=== PATIENT | male | born 1980 | race Caucasian/White ===

== ENCOUNTER 2025-06-24 17:19 | Inpatient (IN) | payer MEDICAID, SELFPAY ==
[2025-06-24] VITALS (9 sets, daily range): BP systolic 120–138; BP diastolic 82–91; PULSE 82–104; RESP 12–30; TEMP 36.8; O2SAT 70–94; BMI 33.7
--- NOTE | 2025-06-24 17:35 | EKG_ITS ---
[facility] Test Date: 2025-06-24 Pat Name: JUANA UMANA Department: Room: - Gender: Male Progressive Care Unit Registered Nurse: : 1980 Requested By: Vibha Nunez Order Number: [id number] Reading MD: Vibha Nunez Measurements Intervals [place] Rate: 92 P: 83 AL: 192 QRS: 133 QRSD: 137 T: -3 QT: 371 QTc: 460 Interpretive Statements SINUS RHYTHM WITH OCCASIONAL VENTRICULAR PREMATURE COMPLEXES RIGHT BUNDLE BRANCH BLOCK [120+ ms QRS DURATION, UPRIGHT V1, 40+ ms S IN I/aVL/V4/V5/V6] LEFT POSTERIOR FASCICULAR BLOCK [QRS AXIS > 109, INFERIOR Q] Compared to ECG 04/07/2019 20:57:41 Ventricular premature complex(es) now present Right bundle-branch block now present Left posterior fascicular block now present Myocardial infarct finding no longer present T-wave abnormality no longer present Possible ischemia no longer present /store/S0/[id number].pdf
--- NOTE | 2025-06-24 17:37 | XR_ITS ---
Examination: AP chest single view Technique: AP portable upright chest single view Date and time: June 24, 2025, 1802 hrs., Comparison May 13, 2023 Indications: Chest pain shortness of breath today. Findings: Mild to moderate CHF Moderate enlargement cardiac contour Prominent vascular congestion with perihilar basilar edema Mild osteopenia Impression: Mild to moderate CHF Moderate enlargement cardiac contour, consider pericardial effusion
[2025-06-24] MEDS: ALBUTEROL RT 2.5 MG/0.5 ML NEBU 10 MG INH (17:41)
--- NOTE | 2025-06-24 17:41 | XR_ITS ---
Examination: Venous duplex lower extremity sonogram, bilateral. Date and time of exam: June 242038 hrs. Indications: Shortness of breath today chest pain Technique: Multiple sonographic images of the deep venous system have been obtained. B-mode/2-D grayscale imaging of vascular structures and Doppler spectral analysis (waveforms) and color performed Both legs are examined. Findings: Deep venous systems do not demonstrate abnormal echogenicity. All visualized deep veins exhibit compressibility. All visualized deep veins exhibit augmentation. Impression: Negative for deep vein thrombosis
--- NOTE | 2025-06-24 17:41 | XR_ITS ---
Examination: CTA chest with intravenous contrast 2-D reconstructions 3-D reconstructions, vascular Date and time of exam: June 24, 2025, 1917 hrs. Indications: Chest pain shortness of breath beginning one week ago CTDI: vol (mGy) 28.89 DLP: (mGycm) 634 Technique: Multiple axial sections of the thorax have been obtained. 3 mm slice thickness, from below the hemidiaphragms to above the apices of the lungs. Mediastinal and lung density settings have been obtained. 2-D sagittal and coronal reconstructions. 3-D angiographic renderings, 3-D volume renderings, 3D post processing, vascular maximum intensity projections obtained. Contrast administered is 100 cc Isovue-370. Low dose protocols were performed. One or more of the following dose reduction techniques were used; automated exposure control, adjustment of the mA and/or KV according to patient size, use of iterative reconstruction technique. Findings: No thoracic aortic aneurysmal dilatation or dissection Pulmonary artery segments are not enlarged No pulmonary artery emboli Mild vascular congestion Bibasilar significant pneumonia No visualized liver or splenic lesion No gallstones No pancreatic mass No hydronephrosis Impression: Negative for pulmonary artery emboli Significant bibasilar pneumonia
[2025-06-24] MEDS: MethylPREDNISolone SOD SUCC 62.5 MG/ML 2ML VIAL 125 MG IVP (17:43)
--- NOTE | 2025-06-24 17:44 | EDNOTE_ITS ---
ED SOB =RME/HPI General Chief Complaint: Shortness of Breath/Dyspnea Stated Complaint: SOB Time Seen by Provider: 06/24/25 17:36 Arrival date/time: 06/24/25 17:19 Mode of arrival: EMS RME / HPI RME / HPI Narrative: Patient is a 44-year-old male medical history of cardioversion in the past x 1 unclear etiology, smoking that is in the emergency department concerns for acute onset shortness of breath. 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 Denies recent travel or sick contacts. Has a hx of htn. Patient received breathing treatment en route. Requiring supplemental O2. Related Data Home Medications ?Medication ?Instructions ?Recorded ?Confirmed lisinopril 10 mg tablet 10 mg PO QDAY 06/24/2506/25 Previous Rx's ?Medication ?Instructions ?Recorded tamsulosin 0.4 mg capsule 0.4 mg PO QDAY 1 month #30 c aps 06/26/25 Allergies Allergy/AdvReac Type Severity Reaction Status Date / Time No Known Allergies Allergy Verified 02/02/19 06:46 Course Quality Measures none Orders Category Date Time Status Admit to Inpatient Status Routine Admission 06/24/25 22:07 Active Patient Condition Routine Admission 06/24/25 22:07 Ordered Activity as Tolerated Routine Care 06/24/25 22:[address] Screening NOW Care 06/24/25 17:41 Completed Assortment Planner Q4H START 00 Care 06/24/25 17:36 Completed EKG (ED ONLY) *Do not use* NOW Care 06/24/25 17:35 Completed EKG (ED ONLY) *Do not use* NOW Care 06/24/25 22:18 Completed Fluid restriction QDAY Care 06/24/25 22:12 Completed Intake and Output QSHIFT Care 06/24/25 22:15 Ordered Notify provider NEEDED Care 06/24/25 22:07 Completed Seizure precautions NEEDED Care 06/24/25 22:08 Completed Strict Intake and Output Q1H Care 06/24/25 22:15 Ordered Strict Intake and Output Q1H Care 06/24/25 23:15 Ordered Strict Intake and Output Q1H Care 06/25/25 00:15 Ordered Strict Intake and Output Q1H Care 06/25/25 01:15 Ordered Strict Intake and Output Q1H Care 06/25/25 02:15 Ordered Strict Intake and Output Q1H Care 06/25/25 03:15 Ordered Strict Intake and Output Q1H Care 06/25/25 04:15 Ordered Strict Intake and Output Q1H Care 06/25/25 05:15 Ordered Strict Intake and Output Q1H Care 06/25/25 06:15 Ordered Strict Intake and Output Q1H Care 06/25/25 07:15 Ordered Strict Intake and Output Q1H Care 06/25/25 08:15 Ordered Strict Intake and Output Q1H Care 06/25/25 09:15 Ordered Strict Intake and Output Q1H Care 06/25/25 10:15 Ordered Strict Intake and Output Q1H Care 06/25/25 11:15 Ordered Strict Intake and Output Q1H Care 06/25/25 12:15 Ordered Strict Intake and Output Q1H Care 06/25/25 13:15 Ordered Strict Intake and Output Q1H Care 06/25/25 14:15 Ordered Strict Intake and Output Q1H Care 06/25/25 15:15 Ordered Strict Intake and Output Q1H Care 06/25/25 16:15 Ordered Strict Intake and Output Q1H Care 06/25/25 17:15 Ordered Strict Intake and Output Q1H Care 06/25/25 18:15 Ordered Strict Intake and Output Q1H Care 06/25/25 19:15 Ordered Strict Intake and Output Q1H Care 06/25/25 20:15 Ordered Strict Intake and Output Q1H Care 06/25/25 21:15 Ordered Diet Regular Diet 06/24/[address] angio chest Stat Exams 06/24/25 17:41 Completed CXR [XR chest 1V] Stat Exams 06/24/25 17:37 Completed EKG (ED Only) Stat Exams 06/24/25 17:35 Draft EKG (ED Only) Stat Exams 06/24/25 22:16 Draft US venous duplex LE BI Stat Exams 06/24/25 17:41 Completed A1C [Glycohemoglobin w (eAG)] Routine Lab 06/24/25 22:04 Completed ABG [Arterial Blood Gas] Stat Lab 06/24/25 17:45 Completed BNP [B-Type Natriuretic Peptide] Stat Lab 06/24/25 17:56 Completed Blood Culture (Lab) Stat Lab 06/24/25 22:04 Completed CBC AM DRAW Lab 06/25/25 03:20 Completed CBC AM DRAW Lab 06/26/25 04:54 Completed CBC Stat Lab 06/24/25 17:56 Completed CMP [Comprehensive Metabolic Panel] Stat Lab 06/24/25 17:56 Completed Drug Screen,Urine Stat Lab 06/24/25 18:45 Completed Electrolytes, Urine Random Stat Lab 06/24/25 22:23 Completed Magnesium AM DRAW Lab 06/26/25 04:54 Completed Magnesium Routine Lab 06/24/25 22:04 Completed Phosphorous Routine Lab 06/25/25 21:03 Completed Renal Function Panel Routine Lab 06/24/25 22:04 Completed Thyroid Stimulating Hormone Routine Lab 06/25/25 21:03 Completed Troponin I Stat Lab 06/24/25 17:56 Completed UA, C/S IF [Urinalysis, C/S if Indicated] Stat Lab 06/24/25 18:45 Completed ALBUTEROL RT 0.5ml [Proventil Rt 0.5ml] Med 06/24/25 17:32 Discontinued 10 mg .ROUTE .STK-MED ONE ALBUTEROL RT 0.5ml [Proventil Rt 0.5ml] Med 06/24/25 17:29 Discontinued 10 mg INH X1 ONE Acetaminophen Tab [Tylenol Tab] Med 06/24/25 22:06 Discontinued 650 mg PO Q6H PRN Doxycycline Inj [Vibramycin Inj] 100 mg Med 06/24/25 20:32 Discontinued Sodium Chloride 0.9% (Pop) [NS 0.9% mini bag] 100 ml IV X1 Enoxaparin [Lovenox] Med 06/25/25 09:00 Discontinued 40 mg SC QDAY MethylPREDNISolone.* [SoluMEDROL Inj] Med 06/24/25 17:36 Discontinued 125 mg IVP X1 ONE Ondansetron Inj [Zofran Inj] Med 06/24/25 22:06 Discontinued 4 mg IVP Q6H PRN Sodium Chloride Rt Lauren 0.9% [NS Rt Lauren 0.9%] Med 06/24/25 17:29 Discontinued 3 ml INH PRN PRN cefTRIAXone/D5w 1gm IV premix [Rocephin/D5w 1gm IV Med 06/24/25 20:32 Discontinued premix] 1 gm in 50 ml IV X1 mg Hyd/Al Hyd/Johnson Susp [Maalox Susp] Med 06/24/25 22:06 Discontinued 30 ml PO Q6H PRN Code Status Routine Oth 06/24/25 22:06 Completed BiPAP / CPAP NEEDED RT 09/26/25 17:29 Completed Oxygen Delivery PRN RT 06/24/25 22:06 Completed Vital Signs Vital signs: Vital Signs Temperature 98.2 F 06/24/25 17:24 Pulse Rate 96 06/24/25 17:24 Respiratory Rate 24 H 06/24/25 17:24 Pulse Oximetry (%) 91 L 06/24/25 17:24 Oxygen Delivery Method BiPAP 06/24/25 17:24 Fraction of Inspired Oxygen 50 06/24/25 17:24 Shortness of Breath / Dyspnea MDM Narrative MDM Narrative:: Patient is a 44-year-old male medical history of cardioversion in the past x 1 unclear etiology that is in the emergency department concerns for acute onset shortness of breath. Vital signs and exam as listed. Concern for reactive airway disease, ACS arrhythmia pulmonary embolus pneumonia CHF among others. Ordered labs EKG chest x-ray as well as CT angio of the chest. Ordered continuous breathing treatment, steroids BiPAP. Patient received a breathing treatment and magnesium by EMS and was put on BiPAP, was feeling better by the time he arrived to the emergency department however continues sat in the low 80s on room air. Labs with evidence of leukocytosis 21, left shift of 83%. Hemoglobin normal. ABG with evidence of pO2 50, pH normal, pCO2 normal. ABG was performed when patient arrived. Patient with hyponatremia sodium 121, potassium 3.4, chloride 90, bicarb 18.8, normal gap, normal creatinine, GFR normal troponin 0.083. BNP 157. Chest x-ray with cardiomegaly and findings concerning for possible mild to moderate CHF versus pericardial effusion. 5:44p discussed case with on-call mixed livestock farm worker Dr. Nguyen, discussed EKG findings and patient presentation. Concerned that patient is having a pulmonary embolus. Recommends CT angio of the chest. This time a shift is not transition care over to Dr. Martini. Patient is pending results of his w/u and safe dispo Patient data External records reviewed:: [facility] previous records and EMS form Clinical information provided by:: patient and EMS Social determinants that could affect healthcare access:: none Patient has the following chronic illnesses:: See MDM How is presenting disease/condition affected by chronic disease/condition?: exacerbated by Evaluation data The following diagnostics were reviewed and interpreted by me:: lab results, radiology exam(s) and EKG tracing(s) Lab and/or radiology exams considered but not ordered:: None Interpretation Summary: hypoxic resp failure Medications / Prescriptions Medications or Prescriptions considered but not ordered:: None Medication administrations:: Medication Administration History Discontinued Medications Acetaminophen (Acetaminophen 325 Mg Tablet) 650 mg PO Q6H PRN PRN Reason: Fever >101.5 Stop: 07/24/25 22:05 Al Hydrox/Mg Hydrox/Simethicone (Mg Hyd/Al Hyd/Johnson (Maalox Reg) Susp 30 Ml Udc) 30 ml PO Q6H PRN PRN Reason: Indigestion Stop: 07/24/25 22:05 Albuterol (Albuterol Rt 2.5 Mg/0.5 Ml Nebu) 10 mg INH X1 ONE Stop: 06/24/25 17:30 Last Admin: 06/24/25 17:41 Dose: 10 mg Documented By: NAPOLEON Albuterol (Albuterol Rt 2.5 Mg/0.5 Ml Nebu) Confirm Administered Dose 10 mg .ROUTE .STK-MED ONE Stop: 06/24/25 17:33 Last Admin: 06/24/25 18:30 Dose: Not Given Documented By: GIOVANI Non-Admin Reason: Duplicate Medication on eMAR Desmopressin Acetate (Desmopressin Acetate 4 Mcg/Ml Vial) 4 mcg IV X1 ONE Stop: 06/24/25 23:31 Last Admin: 06/24/25 23:49 Dose: 4 mcg Documented By: ERIK Desmopressin Acetate (Desmopressin Acet Inj 4 Mcg/Ml Vial 10ml) 4 mcg IV X1 ONE Stop: 06/26/25 05:12 Desmopressin Acetate (Desmopressin Acet Inj 4 Mcg/Ml Vial 10ml) 4 mcg IV X1 ONE Stop: 06/26/25 07:13 Last Admin: 06/26/25 10:10 Dose: 4 mcg Documented By: MERCEDES Diazepam (Diazepam Inj 5 Mg/Ml Vial 2 Ml) 2.5 mg IVP Q2HR PRN PRN Reason: CIWA SCORE 8-13 Stop: 06/30/25 11:00 Enoxaparin Sodium (Enoxaparin Sod Inj 40 Mg/0.4 Ml Syringe) 40 mg SC QDAY CHASE Stop: 07/09/25 08:59 Last Admin: 06/26/25 08:16 Dose: 40 mg Documented By: Admin: 06/25/25 10:36 Dose: 40 mg Documented By: MERCEDES Ceftriaxone Sodium/Dextrose (Rocephin/D5w 1gm Iv Premix) 1 gm in 50 mls @ 100 mls/hr IV X1 ONE Stop: 06/24/25 21:01 Last Infusion: 06/24/25 21:32 Dose: Infused Documented By: Admin: 06/24/25 21:01 Dose: 100 mls/hr Documented By: AISHA Doxycycline Hyclate 100 mg/ (Sodium Chloride) 100 mls @ 100 mls/hr IV X1 ONE Stop: 06/24/25 21:31 Last Infusion: 06/24/25 22:35 Dose: Infused Documented By: Admin: 06/24/25 21:33 Dose: 100 mls/hr Documented By: AISHA Ceftriaxone Sodium/Dextrose (Rocephin/D5w 1gm Iv Premix) 1 gm in 50 mls @ 100 mls/hr IV QDAY [facility] Stop: 06/29/25 09:29 Last Admin: 06/26/25 08:17 Dose: 100 mls/hr Documented By: Infusion: 06/25/25 11:14 Dose: Infused Documented By: Admin: 06/25/25 10:44 Dose: 100 mls/hr Documented By: MERCEDES Azithromycin 250 mg/ Sterile (Water 2.5 ml/ Sodium Chloride) 252.5 mls @ 252.5 mls/hr IV QDAY CHASE Stop: 06/27/25 09:59 Last Admin: 06/26/25 10:10 Dose: 252.5 mls/hr Documented By: Infusion: 06/25/25 14:04 Dose: Infused Documented By: Admin: 06/25/25 13:04 Dose: 252.5 mls/hr Documented By: MERCEDES Dextrose (D5w) 500 mls @ 125 mls/hr IV .Q4H CHASE Stop: 07/25/25 00:44 Last Infusion: 06/25/25 05:53 Dose: Infused Documented By: Admin: 06/25/25 01:53 Dose: 125 mls/hr Documented By: ERIK Dextrose (D5w) 500 mls @ 200 mls/hr IV .Q2H30M CHASE Stop: 07/25/25 01:57 Last Infusion: 06/25/25 10:45 Dose: Infused Documented By: Admin: 06/25/25 07:41 Dose: 200 mls/hr Documented By: Infusion: 06/25/25 07:40 Dose: Infused Documented By: Admin: 06/25/25 04:31 Dose: 200 mls/hr Documented By: Infusion: 06/25/25 04:30 Dose: Infused Documented By: Admin: 06/25/25 02:50 Dose: 200 mls/hr Documented By: ERIK Dextrose (D5w) 1,000 mls @ 50 mls/hr IV .Q20H CHASE Stop: 06/26/25 14:44 Dextrose (D5w) 1,000 mls @ 100 mls/hr IV .Q10H CHASE Stop: 06/26/25 05:31 Last Admin: 06/25/25 21:19 Dose: 100 mls/hr Documented By: GIULIA Dextrose (D5w) 1,000 mls @ 200 mls/hr IV .Q5H CHASE Stop: 06/26/25 08:15 Last Admin: 06/26/25 02:41 Dose: 200 mls/hr Documented By: Infusion: 06/26/25 02:41 Dose: Infused Documented By: Admin: 06/25/25 22:48 Dose: 200 mls/hr Documented By: HV Dextrose (D5w) 1,000 mls @ 250 mls/hr IV .Q4H CHASE Stop: 06/26/25 11:00 Last Admin: 06/26/25 03:54 Dose: 250 mls/hr Documented By: GIULIA Dextrose (D5w) 1,000 mls @ 100 mls/hr IV .Q10H CHASE Stop: 06/27/25 01:11 Last Admin: 06/26/25 08:15 Dose: 100 mls/hr Documented By: MRECEDES Lorazepam (Lorazepam 0.5 Mg Tablet) 0.5 mg PO Q4HR PRN PRN Reason: CIWA Score 2-6 Stop: 06/30/25 11:00 Methylprednisolone Sodium Succinate (Methylprednisolone Sod Succ 62.5 Mg/Ml 2ml Vial) 125 mg IVP X1 ONE Stop: 06/24/25 17:37 Last Admin: 06/24/25 17:43 Dose: 125 mg Documented By: GIOVANI Ondansetron HCl (Ondansetron Inj 2 Mg/Ml Inj 2 Ml) 4 mg IVP Q6H PRN; Protocol PRN Reason: NAUSEA OR VOMITING Stop: 07/24/25 22:05 Potassium Chloride (Potassium Chloride 20 Meq Tabcr) 20 meq PO X1 ONE Stop: 06/25/25 08:08 Last Admin: 06/25/25 10:36 Dose: 20 meq Documented By: MERCEDES Sodium Chloride (Sodium Chloride Rt Lauren 0.9% 3 Ml Nebu) 3 ml INH PRN PRN PRN Reason: SOLN Stop: 07/24/25 17:28 Sodium Chloride (Sodium Chloride Rt 10% 15 Ml Nebu) 5 ml INH X1 ONE Stop: 06/24/25 23:00 Last Admin: 06/24/25 23:20 Dose: Not Given Documented By: NAYA Non-Admin Reason: Other, see note Tamsulosin HCl (Tamsulosin Hcl 0.4 Mg Capsule) 0.4 mg PO QDAY CHASE Stop: 07/25/25 11:59 Last Admin: 06/26/25 08:16 Dose: 0.4 mg Documented By: Admin: 06/25/25 14:12 Dose: 0.4 mg Documented By: MERCEDES See above Consultations Consultation(s) initiated? (list below): Yes Diagnosis Shortness of Breath Differential Diagnosis: other (See MDM) Most likely diagnosis given after review of the tests above:: Acute hypoxic respiratory failure Admission Indicated Admission indicated?: indicated Explain why admission is indicated or not indicated:: Dispo pending Admission Request Was there a request for admission?: No Disposition Plan Disposition Plan: other (specify) (Signed out) Discharge Plan Plan Patient Disposition: Admit Acute Care w/in Hospital Problem List Clinical Impression: Acute hypoxic respiratory failure, Pneumonia
[2025-06-24 18:02] LABS: Base Excess -3 (-3-3); HCO3 21 mEq/L (20-26); Inspired Oxygen, FIO2 50 %; O2 Saturation 86 % (91-98); PCO2 36 mmHg (32.0-48.0); pH, Arterial 7.39 (7.35-7.45)
[2025-06-24 18:05] LABS: Allen Test Performed/OK; PO2 50 mmHg (83-108); Puncture Site Left Radial
[2025-06-24 18:07] LABS: Basophils # (Auto) 0.1 Thou/mm3 (0.0-0.2); Basophils % (Auto) 0 % (0-2.5); Eosinophils # (Auto) 0.1 Thou/mm3 (0.0-0.5); Eosinophils % (Auto) 0 % (0-10); Hematocrit 42.5 % (41.0-53.0); Hemoglobin 14.4 g/dL (13.5-16.0); Immature Granulocytes Auto 0.40 Thou/mm3 (0.00-0.00); Lymphocytes # (Auto) 1.8 Thou/mm3 (1.0-4.8); Lymphocytes % (Auto) 9 % (10-50); Mean Corpuscular HGB Conc 33.9 g/dl (31.0-37.0); Mean Corpuscular Hemoglobin 28.6 pg (25.0-35.0); Mean Corpuscular Volume 85 fL (80-100); Monocytes # (Auto) 1.2 Thou/mm3 (0.0-0.8); Monocytes % (Auto) 6 % (0-12); Neutrophils # (Auto) 17.5 Thou/mm3 (1.8-7.7); Neutrophils % (Auto) 83 % (37-80); Nucleated Red Blood Cell # 0.00 Thou/mm3 (0.00-0.00); Nucleated Red Blood Cell % 0 /100 WBC (0); Platelet Count 233 Thou/mm3 (140-440); RDW Standard Deviation 39.9 fL (35.1-43.9); Red Blood Count 5.03 Miln/mm3 (4.50-5.90); White Blood Count 21.0 Thou/mm3 (3.8-10.6)
--- NOTE | 2025-06-24 18:23 | EDNOTE_ITS ---
Emergency Room Addendum Addendum Narrative: 1800: Care assumed from Dr. Patel, the previous shift emergency physician. Past medical, surgical, social and family history reviewed. Vitals and home medications reviewed. Results and treatment plan discussed. I will assume the care of the patient at this time and will follow the patient, pending work-up. Please refer to the emergency department record for history and examination from initial visit. 44yo male with a long-term smoking history presenting with sudden onset shortness of breath and was found to be in moderate-severe respiratory dist and was found to be profoundly hypoxic on room air, dropping to the 70s. Patient was treated aggressively with serial nebulizer therapy, IV steroids, and BiPAP with gradual steady improvement. Patient currently saturating at 92% 4L/NC. CTA scan failed to demonstrate PE but does show bibasilar pneumonia. Although patient is mild tachycardic, patient has been normaltensive throughout and doubt sepsis. May have had a severe bronchospastic episode. Dual IV antibiotics administered. Hospitalist consulted for admission. Dx: acute hypoxic respiratory failure, pneumonia RADIOLOGY RESULTS: [place] [facility] Signed Patient: JUANA UMANA [employer]. Record#: [id number] Birthdate: 1980 Age/Sex: 44 / M Location: [facility] Attending Dr: Ordering Physician: Vibha Patel MD Date of Service: 06/24/25 Procedure(s): XR chest 1V Accession Number(s): [id number] cc: Kole Amaro MD; Vianney Palomares VASCULAR RADIOLOGIST; Vibha Patel MD~ Examination: AP chest single view Technique: AP portable upright chest single view Date and time: June 24, 2025, 1802 hrs., Comparison May 13, 2023 Indications: Chest pain shortness of breath today. Findings: Mild to moderate CHF Moderate enlargement cardiac contour Prominent vascular congestion with perihilar basilar edema Mild osteopenia Impression: Mild to moderate CHF Moderate enlargement cardiac contour, consider pericardial effusion Dictated By: Kole Amaro MD Signed By: <Electronically signed by Kole Amaro MD in OV> 06/24/25 1843 [place] [facility] Signed Patient: JUANA UMANA [facility]. Record#: [id number] Birthdate: 1980 Age/Sex: 44 / M Location: [facility] Attending Dr: Ordering Physician: Vibha Patel MD Date of Service: 06/24/25 Procedure(s): CT angio chest Accession Number(s): [id number] cc: Kole Amaro MD; Vianney Palomares VASCULAR RADIOLOGIST; Vibha Patel MD~ Examination: CTA chest with intravenous contrast 2-D reconstructions 3-D reconstructions, vascular Date and time of exam: June 24, 2025, 191 hrs. Indications: Chest pain shortness of breath beginning one week ago CTDI: vol (mGy) 28.89 DLP: (mGycm) 634 Technique: Multiple axial sections of the thorax have been obtained. 3 mm slice thickness, from below the hemidiaphragms to above the apices of the lungs. Mediastinal and lung density settings have been obtained. 2-D sagittal and coronal reconstructions. 3-D angiographic renderings, 3-D volume renderings, 3D post processing, vascular maximum intensity projections obtained. Contrast administered is 100 cc Isovue-370. Low dose protocols were performed. One or more of the following dose reduction techniques were used; automated exposure control, adjustment of the mA and/or KV according to patient size, use of iterative reconstruction technique. Findings: No thoracic aortic aneurysmal dilatation or dissection Pulmonary artery segments are not enlarged No pulmonary artery emboli Mild vascular congestion Bibasilar significant pneumonia No visualized liver or splenic lesion No gallstones No pancreatic mass No hydronephrosis Impression: Negative for pulmonary artery emboli Significant bibasilar pneumonia Dictated By: Kole Amaro MD Signed By: <Electronically signed by Kole Amaro MD in OV> 06/24/252006
[2025-06-24 18:27] LABS: B-Type Natriuretic Peptide 157 pg/mL (0-100)
[2025-06-24 18:32] LABS: Alanine Aminotransferase 15 U/L (10-49); Albumin, Serum 4.1 gm/dL (3.5-5.0); Albumin/Globulin Ratio 1.9 (1.2-2.2); Alkaline Phosphatase 59 U/L (46-116); Anion Gap 12 (7-16); Aspartate Amino Transferase 22 U/L (0-34); BUN/Creatinine Ratio 8 Ratio (12-20); Bilirubin,Total 1.0 mg/dL (0.3-1.2); Blood Urea Nitrogen 11 mg/dL (9-23); Calcium 8.3 mg/dL (8.3-10.6); Calcium (Corrected) 8.3 mg/dL (8.5-10.1); Carbon Dioxide 18.8 mMol/L (20.0-31.0); Chloride 90 mMol/L (98-107); Creatinine (Component) 1.3 mg/dL (0.6-1.3); Estimated Creatinine Clearance 86.8 mL/min (>60); Globulin 2.2 gm/dL (2.3-3.5); Glucose 153 mg/dL (74-106); Osmolality,Calculated 246 (275-295); Potassium 3.4 mMol/L (3.4-5.1); Sodium 121 mMol/L (136-145); Total Protein 6.3 gm/dL (5.7-8.2); eGFR > 60 See Note
[2025-06-24 18:33] LABS: Troponin I 0.083 ng/mL (0.0-0.045)
--- NOTE | 2025-06-24 18:37 | PC.NURSE ---
Patient provided with urinal for urine sample. Called CT to take patient for exam.
--- NOTE | 2025-06-24 18:52 | PC.NURSE ---
Per Dr. Martini ok to keep 02 sats 88% or greater.
[2025-06-24 19:06] LABS: Collection Type, Urine Clean Catch
[2025-06-24 19:12] LABS: Bilirubin,Urine Negative (Negative); Blood,Urine Negative (Negative); Clarity,Urine Clear (Clear/Hazy); Color,Urine Lt-Yellow (Lt Yel-Yel); Culture Indicated,Urine Not Indicated; Glucose, Urine 2+ (Negative); Hyaline Casts,Urine < 1 /hpf (0-1); Ketones,Urine Negative (Negative); Leukocyte Esterase,Urine Negative (Negative); Nitrite,Urine Negative (Negative); PH,Urine 6.0 (5.0-7.0); Protein,Urine Trace (Neg - Trace); RBC,Urine 1 /hpf (0-3); Specific Gravity,Urine 1.018 (1.001-1.035); Squamous Epithelial Cell,Urine 1 /hpf (0-5); Urobilinogen,Urine Negative mg/dL (0.0-1.0); WBC,Urine < 1 /hpf (0-5)
[2025-06-24 19:19] LABS: Amphetamine/Methamp Scrn,U Negative (Negative); Barbiturate Screen,Urine Negative (Negative); Benzodiazepines Screen,Urine Negative (Negative); Benzoylecgonine Screen, Ur Negative (Negative); Fentanyl Screen,Urine Negative (Negative); Opiate Screen,Urine Negative (Negative); THC Screen,Urine Negative (Negative)
[2025-06-24] MEDS: cefTRIAXone/D5w 1gm IV premix 1 GM/50 ML BAG IV (21:01)
[2025-06-24] MEDS: DOXYCYCLINE INJ 100 MG in SODIUM CHLORIDE 0.9% (POP) 100 ML IV (21:33)
--- NOTE | 2025-06-24 22:16 | EKG_ITS ---
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
[2025-06-24 22:46] LABS: Chloride,Urine Random < 20.0 mMol/L (55.0-125.0); Potassium,Urine Random < 2 mMol/L (12-62); Sodium,Urine Random < 15.0 mMol/L (20.0-110.0)
--- NOTE | 2025-06-24 23:00 | ESHP_ITS ---
Documented by User: Allison Scherer MD 06/26/25 00:30 Documentation for date of: 06/24/25 HPI - Hospitalist History of Present Illness History of present illness: 44-year-old male with pmhx of COPD, HTN, cardioversion in 2019 for an episode of SVT, COPD, cardiac surgery in childhood for unknown condition and long smoking history BIBA to ED with complaint of acute onset shortness of breath. Patient was in his usual state of health but started experiencing increasing shortness of breath a few hours prior to admission, denies any other symptoms of chest pain, palpitations, cough, fever, chills, nausea/vomiting or neurosymptoms like headache/blurry vision/focal weakness. On presentation to ED vital signs were only noted for tachypnea, and O2 saturation of 80s%. Patient's labs showed leukocytosis of 21, sodium 121, chloride of 90, bicarb of 19, glucose 150, serum Osmo 246 troponin 0.083 and ABG O2 sat of 86%. Patient was started on BiPAP at ED and given magnesium and albuterol inhalation, along with methylprednisolone and IV antibiotics. EKG at ED showed [id number] concerning for PE, cardiology?Dr. Bermudez was contacted by ED, CTA of the chest was recommended,but did not show any signs of PE and was only noted for significant bibasilar pneumonia. At time of evaluation prior to admission the patient he was noted to be making significant amount of urine around 4 L since presentation to ED. Repeat BMP showed sodium of 129, desmopressin 4 mcg was administered for concern of rapid sodium correction the patient was started on D5 W. 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 Review of Systems Review of Systems Systems Reviewed: All systems reviewed, normal except as documented Past Medical History Past Medical History NEUROLOGIC: Positive Neurological Disorders (ANXIETY); Negative Seizures CARDIAC: Positive Cardiac Arrhythmia and Hypertension RESPIRATORY: Positive Asthma; Negative Chronic Obstructive Pulmonary Disease (COPD) GASTROINTESTINAL: Positive Gastrointestinal Disorders and Gastroesophageal Reflux Disease GENITOURINARY: Negative Genitourinary Disorders or Renal Disease MUSCULOSKELETAL: Negative Musculoskeletal Disorders ENT: Positive History of ENT Problems and Ear Infection (1 YEAR AGO BILATERAL) ENDOCRINE: Positive Endocrine Disorders; Negative Diabetes Mellitus Type 1 or Diabetes Mellitus Type 2 (BORDERLINE, NOT FORMERLY DIAGNOSED.) HEMATOLOGIC: Negative Blood Disorders or Sickle Cell Disease PSYCHO/SOCIAL: Positive Anxiety (SINCE 1 YEAR AGO.) OTHER HISTORY: Positive Hospitalization (FOR HERNIA REPAIR) and Chicken Pox; Negative Autoimmune Disease, Shingles, Falls, Blood Transfusions, Blood Transfusion Reaction (n/a), Anesthesia Reactions, Chemotherapy, Radiation Therapy or MRSA Family History FAMILY HISTORY: Positive Family Cardiac Disorders (DAD AND GRANDFATHER HAD HEART SURGERIES), Family Endocrine Disorders, Family Cancer and Family Surgery; Negative Family Psychiatric Problems, Family Respiratory Disorders, Family Gastrointestinal Problems or Family Anesthesia Reaction Surgical History SURGICAL: Positive Cardiac Surgery (3 CARDIAC SURGERIES UP TO THE AGE OF 1.) and Open Heart Surgery ( AN ); Negative Pacemaker Social History SMOKING STATUS: Current every day smoker SECOND HAND EXPOSURE: No SUBSTANCE USE: former substance user (Meth) LIVES WITH: Spouse Travel History EBOLA RISK: No Meds Home Medications and Allergies Home Medications ?Medication ?Instructions ?Recorded ?Confirmed ?Type lisinopril 10 mg tablet 10 mg PO QDAY 06/24/2506/25 History Allergies Allergy/AdvReac Type Severity Reaction Status Date / Time No Known Allergies Allergy Verified 02/02/19 06:46 Exam Vital Signs Temp Pulse Resp BP Pulse Ox O2 Del Method O2 Flow Rate 98.2 F 88 20 138/91 H 93 L Nasal Cannula 4 06/24/25 17:24 06/24/25 22:28 06/24/25 22:28 06/24/25 22:19 06/24/25 22:28 06/24/25 22:19 06/24/25 22:28 FiO2 50 06/24/25 17:43 Results - Hospitalist Labs Diagrams: 06/24/25 17:56 Labs: Short CBC 06/24/25 Range/Units 17:56 WBC 21.0 H (3.8-10.6) Thou/mm3 Hgb 14.4 (13.5-16.0) g/dL Hct 42.5 (41.0-53.0) % Plt Count 233 (140-440) Thou/mm3 BMP 06/24/25 17:56 Sodium 121 L Potassium 3.4 Chloride 90 L Carbon Dioxide 18.8 L BUN 11 Creatinine 1.3 Glucose 153 H Calcium 8.3 Cardiac Enzymes 06/24/25 Range/Units 17:56 Troponin I 0.083 H* (0.0-0.045) ng/mL Liver Function 06/24/25 Range/Units 17:56 Total Bilirubin 1.0 (0.3-1.2) mg/dL AST 22 (0-34) U/L ALT 15 (10-49) U/L Alkaline Phosphatase 59 (46-116) U/L Albumin 4.1 (3.5-5.0) gm/dL Urine 06/24/25 Range/Units 18:45 Urine Color Lt-Yellow (Lt Yel-Yel) Urine Clarity Clear (Clear/Hazy) Urine pH 6.0 (5.0-7.0) Ur Specific [place] 1.018 (1.001-1.035) Urine Protein Trace (Neg - Trace) Urine Glucose (UA) 2+ A (Negative) ABG Interpretation ABG results: 06/24/25 17:45 ABG pH 7.39 ABG pCO2 36 ABG pO2 50 L* ABG HCO3 21 ABG O2 Saturation 86 L ABG Base Excess -3 Assessment & Plan -Hospitalist Additional Plan Additional Plan: 44-year-old male with pmhx of COPD, HTN, cardioversion in 2019 for an episode of SVT, COPD, cardiac surgery in childhood for unknown condition and long smoking history admitted for acute hypoxic respiratory failure in setting of community- acquired pneumonia and hyponatremia. Acute hypoxemic respiratory failure CAP Possible CHF Presenting with acute respiratory failure with oxygen saturating dropping to 70% on room air. ABG showed low oxygen of 50 but normal pH and CO2. CT showed no evidence of PE, but demonstrated bibasilar PNA. She also afebrile but has leukocytosis of 21.0. BNP 157 and xhest x-ray with cardiomegaly and findings concerning for possible mild to moderate CHF versus pericardial effusion. Most recent ECHO from 2019 showed EEF 40%. However, no signs of volume overload on exam. In ED, she received a dose of CTX and DOXYCYCLINE and SOLUMEDROL 125 mg X1. ? Continue DUONEBS PRN ? Continue CEFTRIAXONE and AZITHROMYCIN ? Pending blood and sputum culture ? Pending ECHO. Pitting ? Cardiac stratification with lipid panel (pending), TSH (pending), and A1c 5.9 Hypoosmolar Hyponatremia Iatrogenic polydipsia Polyuria Presents with sodium 121, and serum osm of 246. Significant water intake (8-10 of 32oz cups) in preparation for drug screen. Less likely SIADH. Fluid restriction started. Patient initially presented with hyposmolar hyponatremia in setting water intox. followed by high physiologic UOP causing rapid correction. Polyuria at time of admission with 4L of UOP and serum Na 129 Received a dose of DESMOPRESIN to decrease Na correction UOP decreased significantly. ? Pending Uosm ? Sodium checks ? Patient started on D5W @200 ? Consider further imaging as warranted if central DI is suspected. ? Nephro consulted, recs appreciated. NSTEMI, likely type 2 Hx of cardioversion 2019 Likely demand ischemia in settings of hypoxemia. Trop 0.083 without evidence of ischemia on EKG which showed sinus rhythm, and without chest pain. ? Trending troponin Health maintenance: DVT prophylaxis: Enoxaparin 40sc daily Diet: Regular IV access: PIV CODE STATUS: Full code Plan of care discussed with patient and is in agreement. After examination of the patient and review of the clinical data I feel that this patient needs admission to the hospital for further treatment/evaluation. TOTAL CC TIME: 45 MIN TOTAL TIME: 45 Minutes of direct medical management and planning of care. I Allison Scherer MD, attest that I was physically present for wright portions of evaluation, and examined patient, labs and imagings and plan of care were discussed with IM residents team, and I agree with the findings and plans documented above. Quality Measures Quality Measures VTE prophylaxis Documented by User: Mansi Mcghee MD 06/25/25 02:47 Meds Home Medications and Allergies Home Medications ?Medication ?Instructions ?Recorded ?Confirmed ?Type lisinopril 10 mg tablet 10 mg PO QDAY 06/24/2506/25 History Allergies Allergy/AdvReac Type Severity Reaction Status Date / Time No Known Allergies Allergy Verified 02/02/19 06:46 Exam Narrative GENERAL * Obese male, NAD, satting well on 2L NC HEENT * NCAT.?CHANTELLE. Oral mucosa is moist. Patent Nares NECK * Supple, nontender, no JVD. CHEST * RRR, no m/g/r * Coarse breath sounds dalia, no w/r/r, symmetrical expansion. ABDOMEN * Soft, flat, nontender. No guarding/rebound tenderness/masses. * Bowel sounds presents EXTREMITIES * No edema/cyanosis.? SKIN * Warm and dry, no jaundice/rashes. NEUROMUSCULAR * No lumbar or midline, no CVA, no paraspinal muscle spasm or tenderness. * Moves all 4 extremities well, with full ROM and good CSM. * BETANCOURT x4, CN II-XII grossly intact. * No focal neurologic deficits. PSYCHIATRY * Normal mood and affect, cooperative, no SI or HI or hallucinations. Assessment & Plan -Hospitalist Additional Assessment This is a 44-year-old male with pmhx of cardioversion in 2019 for an episode of SVT presented to ED with complaint of acute onset shortness of breath. Admitted for AHRF in setting of PNA, and management of hyponatremia. Acute hypoxemic respiratory failure PNA, likely GNR Possible CHF without exacerbation Presenting with acute respiratory failure with oxygen saturating dropping to 70% on room air. ABG showed low oxygen of 50 but normal pH and CO2. CT showed no evidence of PE, but demonstrated bibasilar PNA. She also afebrile but has leukocytosis of 21.0. BNP 157 and xhest x-ray with cardiomegaly and findings concerning for possible mild to moderate CHF versus pericardial effusion. Most recent ECHO from 2019 showed EEF 40%. However, no signs of volume overload on exam. In ED, she received a dose of CTX and DOXYCYCLINE and SOLUMEDROL 125 mg X1. ? Continue DUNEBS PRN ? Continue CEFTRIAXONE and AZITHROMYCIN ? Pending blood and sputum culture ? Pending ECHO ? Cardiac stratification with lipid panel (pending), TSH (pending), and A1c 5.9 Acute Hypoosmolar Hyponatremia Presents with sodium 121, and serum osm of 246. States he has been avoiding salt intake over the last few years as advised by his doctor. Additionally, reports excessive water intake since yesterday in preparation for drug test. In ED, he had spontaneous 4L urine output, after which sodium self corrected to 133 despite a dose of DESMOPRESIN given preemptively. Will proceed with workup for other potential cause. ? Pending Uosm and elytes ? Pending ACTH, TSH ? Pending nephrology recommendations ? Continue D5W at 200 cc/h for goal sodium <127. ? Strict INOs ? Sodium checks NSTEMI, likely type 2 Hx of cardioversion 2018 Likely demand ischemia in settings of hypoxemia. Trop 0.083 without evidence of ischemia on EKG which showed sinus rhythm, and without chest pain. ? Trending troponin TIGRE (resolved) Likely renal congestion in setting of excessive water intake with admission CR 1.3. Self-corrected after 4L urine output. ? Renally dose meds, avoid overdiuresis and NEPHROTOXINS ? Daily CMP Health maintenance Diet: Regular GI prophylaxis: Not indicated DVT prophylaxis: LOVENOX Antibiotics: CTX and AZITHROMYCIN CODE STATUS: FULL-CODE Disposition: Admitted for AHRF and acute hyponatremia
[2025-06-24 23:03] LABS: Albumin, Serum 4.7 gm/dL (3.5-5.0); Anion Gap 13 (7-16); BUN/Creatinine Ratio 12 Ratio (12-20); Blood Urea Nitrogen 12 mg/dL (9-23); Calcium 9.3 mg/dL (8.3-10.6); Calcium (Corrected) 9.3 mg/dL (8.5-10.1); Carbon Dioxide 22.3 mMol/L (20.0-31.0); Chloride 94 mMol/L (98-107); Creatinine (Component) 1.0 mg/dL (0.6-1.3); Estimated Creatinine Clearance 112.8 mL/min (>60); Glucose 143 mg/dL (74-106); Magnesium 2.5 mg/dL (1.6-2.6); Osmolality,Calculated 260 (275-295); Phosphorous 3.8 mg/dL (2.4-5.1); Potassium 3.8 mMol/L (3.4-5.1); Sodium 129 mMol/L (136-145); eGFR > 60 See Note
[2025-06-24] MEDS: DESMOPRESSIN ACETATE 4 MCG/ML VIAL IV (23:49)
[2025-06-25] VITALS (8 sets, daily range): BP systolic 106–131; BP diastolic 64–87; PULSE 79–100; RESP 12–33; TEMP 36–36.8; O2SAT 93–96
[2025-06-25 00:03] LABS: Glucose Estimated Average 123 mg/dL (80-131); Hemoglobin A1C 5.9 % Hgb (4.8-6.0)
--- NOTE | 2025-06-25 00:23 | ECHO_ITS ---
Transthoracic Echo Report Ht (in): 70 Wt (lb): 219 Exam Location: Echo Lab Status: Inpatient Edge Gluer: Lori Castellanos Indications: Procedure Performed: BP: 105 / 102 HR: 75 MEASUREMENTS (Male / Female) Normal Values DOPPLER AV Peak Velocity 126.0 cm/s AV Peak Gradient 6.4 mmHg AV Mean Gradient 3.0 mmHg AV Velocity Time Integral 16.0 cm LVOT Peak Velocity 68.0 cm/s LVOT Peak Gradient 1.8 mmHg LVOT Velocity Time Integral 9.7 cm MV Area PHT 4.7 cm? Mitral E Point Velocity 32.5 cm/s Mitral A Point Velocity 58.7 cm/s Mitral E to A Ratio 0.6 TR Peak Velocity 436.0 cm/s TR Peak Gradient 76.0 mmHg FINDINGS Left Ventricle Normal left ventricular size. Estimated EF at 40-45%. Global left ventricular systolic function is mildly decreased. Right Ventricle The right ventricle is normal in size with mildly decreased systolic function. The estimated right ventricular systolic pressure, 80 mmHg. RAP 5. Left Atrium Left atrium not well visualized. Right Atrium Right atrium is not well visualized. Atrial Septum The interatrial septum appears normal with no evidence of a shunt. Aorta The aorta is normal by two-dimensional, color flow and Doppler interrogation. Mitral Valve The mitral valve is not well visualized. Aortic Valve The aortic valve is not well visualized. Tricuspid Valve There is moderate tricuspid regurgitation. Pulmonic Valve The pulmonic valve is not well visualized. There is no significant pulmonic valve regurgitation. Vessels The pulmonary artery appears normal. The inferior vena cava pulmonary and hepatic veins appear normal. Pericardium The pericardium is normal by two-dimensional imaging. There is no significant pericardial effusion. CONCLUSIONS Normal LV size. Estimated EF at 40-45%. Global left ventricular systolic function is mildly decreased. The RV is normal in size with mildly decreased systolic function. The estimated RVSP, 80 mmHg. RAP 5. There is moderate TR. Ismael Bermudez (Electronically Signed) Final Date: 26 June 2025 13:14
[2025-06-25 00:41] LABS: Sodium 133 mMol/L (136-145)
[2025-06-25] MEDS: DEXTROSE 5%-WATER 500 ML 125 ML IV (01:53)
[2025-06-25] MEDS: DEXTROSE 5%-WATER 500 ML 200 ML IV ×3 (02:50→07:41)
[2025-06-25 03:45] LABS: Basophils # (Auto) 0.0 Thou/mm3 (0.0-0.2); Basophils % (Auto) 0 % (0-2.5); Eosinophils # (Auto) 0.0 Thou/mm3 (0.0-0.5); Eosinophils % (Auto) 0 % (0-10); Hematocrit 43.5 % (41.0-53.0); Hemoglobin 14.7 g/dL (13.5-16.0); Immature Granulocytes Auto 0.06 Thou/mm3 (0.00-0.00); Lymphocytes # (Auto) 0.4 Thou/mm3 (1.0-4.8); Lymphocytes % (Auto) 6 % (10-50); Mean Corpuscular HGB Conc 33.8 g/dl (31.0-37.0); Mean Corpuscular Hemoglobin 28.7 pg (25.0-35.0); Mean Corpuscular Volume 85 fL (80-100); Monocytes # (Auto) 0.2 Thou/mm3 (0.0-0.8); Monocytes % (Auto) 3 % (0-12); Neutrophils # (Auto) 6.9 Thou/mm3 (1.8-7.7); Neutrophils % (Auto) 91 % (37-80); Nucleated Red Blood Cell # 0.00 Thou/mm3 (0.00-0.00); Nucleated Red Blood Cell % 0 /100 WBC (0); Platelet Count 190 Thou/mm3 (140-440); RDW Standard Deviation 40.0 fL (35.1-43.9); Red Blood Count 5.12 Miln/mm3 (4.50-5.90); White Blood Count 7.6 Thou/mm3 (3.8-10.6)
[2025-06-25 04:04] LABS: Troponin I 0.141 ng/mL (0.0-0.045)
[2025-06-25 04:07] LABS: Cardiac Risk Estimate 3.5 RATIO (4.0-6.7); Cholesterol 187 mg/dL (132-200); HDL Cholesterol 54 mg/dL (40-60); LDL Cholesterol,Calculated 117 mg/dL (0-130); Magnesium 2.3 mg/dL (1.6-2.6); Sodium 132 mMol/L (136-145); Triglycerides 81 mg/dL (30-150)
--- NOTE | 2025-06-25 07:30 | PC.NURSE ---
Pt. here from home to bed 3, pt. states he can breathe so much better today than he could yesterday, pt. resting comfortably, warm blanket given, pt. states thank you. Pt. has NC 2L O2, tolerating well.
--- NOTE | 2025-06-25 08:01 | PC.NURSE ---
Pt. spouse is bedside talking with pt.
[2025-06-25 08:53] LABS: Sodium 131 mMol/L (136-145)
[2025-06-25 09:12] LABS: Troponin I 0.092 ng/mL (0.0-0.045)
--- NOTE | 2025-06-25 09:24 | PD.RESPRO ---
Documentation for date of: 06/25/25 Subjective Subjective Interval history: Overnight events: Patient admitted overnight. Patient was seen and examined at bedside. AM vitals and labs reviewed. Patient does not appear to be any acute distress at this time. Breathing comfortably on 2 L nasal cannula. Skin does look quite erythematous from nasal bridge down. Surgical scar noted on center of chest. Patient does not note any chest pain at this time. Does state that he has difficulty with urine flow, wakes up several times at night to urinate, and this is not new for him. About 3.7 L of urine produced since arrival in ED without any diuresis. WBC significantly decreased to 7.6, sodium 131, troponin 0.092. Urine sodium less than 15, urine potassium less than 2, urine chloride less than 20. Urine osmolality pending. Nephrology consulted, recommends fluid restriction without any additional D5W. Continue sodium checks every 4 hour. Advised patient to not excessively drink water. CIWA protocol activated given possible concern for excessive alcohol consumption, although the patient does deny. Pending echocardiogram. Patient noted to not be taking Cardizem per med rec, will evaluate need for Cardizem which was prescribed for SVT after echocardiogram as patient does have a history of HFrEF. Review of systems otherwise negative except for what is mentioned above. Exam Vital Signs Temp Pulse Resp BP Pulse Ox O2 Del Method O2 Flow Rate 98.1 F 92 17 131/82 H 95 Nasal Cannula 2 06/25/25 07:30 06/25/25 07:30 06/25/25 07:30 06/25/25 07:30 06/25/25 07:30 06/25/25 07:30 06/25/25 07:30 FiO2 50 06/24/25 17:43 Narrative Exam Physical Exam: General: Alert, no acute distress. Obese. Skin: Warm, dry, intact. Erythema from nasal bridge down. Head: Normocephalic, atraumatic. Eye: Normal conjunctiva, PERRL. Cardiovascular: Regular rate and rhythm, no murmur, +S1/S2. Respiratory: Respirations unlabored on NC, slight crackles bilateral lower lung suárez, no wheezing. Gastrointestinal: Soft, nontender, non-distended. No guarding or rebound tenderness. Extremities: No edema, no cyanosis, no clubbing. Neuro: No focal deficits observed. Conversant, moving all extremities. No overt cerebellar signs/incoordination. Psychiatric: Cooperative, appropriate affect. Objective Labs 06/26/25 04:54 06/26/25 12:58 Labs: Laboratory Results - last 24 hr 06/24/25 06/24/25 06/24/25 17:45 17:56 18:45 WBC 21.0 H RBC 5.03 Hgb 14.4 Hct 42.5 MCV 85 MCH 28.6 MCHC 33.9 RDW Std Deviation 39.9 Plt Count 233 Neut % (Auto) 83 H Lymph % (Auto) 9 L Martin % (Auto) 6 Eos % (Auto) 0 Baso % (Auto) 0 Neut # (Auto) 17.5 H Lymph # (Auto) 1.8 Martin # (Auto) 1.2 H Eos # (Auto) 0.1 Baso # (Auto) 0.1 Immature Gran # (Auto) 0.40 H Absolute Nucleated RBC 0.00 Immature Gran % 2 H Nucleated RBC % 0 Puncture Site Left Radial ABG pH 7.39 ABG pCO2 36 ABG pO2 50 L* ABG HCO3 21 ABG O2 Saturation 86 L ABG Base Excess -3 FiO2 50 Sodium 121 L Potassium 3.4 Chloride 90 L Carbon Dioxide 18.8 L Anion Gap 12 BUN 11 Creatinine 1.3 Estim Creat Clear Calc 86.8 eGFR > 60 BUN/Creatinine Ratio 8 L Glucose [address] Glu mg/dL Hemoglobin A1c Calculated Osmolality 246 L Calcium 8.3 Corrected Calcium 8.3 L Phosphorus Magnesium Total Bilirubin 1.0 AST 22 ALT 15 Alkaline Phosphatase 59 Troponin I 0.083 H* B-Natriuretic Peptide 157 H Total Protein 6.3 Albumin 4.1 Globulin 2.2 L Albumin/Globulin Ratio 1.9 Triglycerides Cholesterol LDL Cholesterol, Calc HDL Cholesterol Cholesterol/HDL Ratio Ur Collection Type Clean Catch Urine Color Lt-Yellow Urine Clarity Clear Urine pH 6.0 Ur Specific Carson 1.018 Urine Protein Trace Urine Glucose (UA) 2+ A Urine Ketones Negative Urine Blood Negative Urine Nitrite Negative Urine Bilirubin Negative Urine Urobilinogen (Auto) Negative Ur Leukocyte Esterase Negative Urine RBC 1 Urine WBC < 1 Ur Squamous Epith Cells 1 Urine Bacteria None Hyaline Casts < 1 Ur Culture Indicated? Not Indicated Ur Random Sodium Ur Random Potassium Ur Random Chloride Urine Opiates Screen Negative Urine Fentanyl Screen Negative Ur Barbiturates Screen Negative U Amphetamin/Meth Scrn Negative U Benzodiazepines Scrn Negative U Cocaine Metab Screen Negative U Marijuana (THC) Screen Negative 06/24/25 06/24/25 06/25/25 22:04 22:23 00:22 WBC RBC Hgb Hct MCV MCH MCHC RDW Std Deviation Plt Count Neut % (Auto) Lymph % (Auto) Martin % (Auto) Eos % (Auto) Baso % (Auto) Neut # (Auto) Lymph # (Auto) Martin # (Auto) Eos # (Auto) Baso # (Auto) Immature Gran # (Auto) Absolute Nucleated RBC Immature Gran % Nucleated RBC % Puncture Site ABG pH ABG pCO2 ABG pO2 ABG HCO3 ABG O2 Saturation ABG Base Excess FiO2 Sodium 129 L 133 L Potassium 3.8 Chloride 94 L Carbon Dioxide 22.3 Anion Gap 13 BUN 12 Creatinine 1.0 Estim Creat Clear Calc 112.8 eGFR > 60 BUN/Creatinine Ratio 12 [address]ucose [address] Glu mg/dL 123 Hemoglobin A1c 5.9 Calculated Osmolality 260 L Calcium 9.3 Corrected Calcium 9.3 Phosphorus 3.8 Magnesium 2.5 Total Bilirubin AST ALT Alkaline Phosphatase Troponin I 0.141 H* B-Natriuretic Peptide Total Protein Albumin 4.7 D Globulin Albumin/Globulin Ratio Triglycerides Cholesterol LDL Cholesterol, Calc HDL Cholesterol Cholesterol/HDL Ratio Ur Collection Type Urine Color Urine Clarity Urine pH Ur Specific Carson Urine Protein Urine Glucose (UA) Urine Ketones Urine Blood Urine Nitrite Urine Bilirubin Urine Urobilinogen (Auto) Ur Leukocyte Esterase Urine RBC Urine WBC Ur Squamous Epith Cells Urine Bacteria Hyaline Casts Ur Culture Indicated? Ur Random Sodium < 15.0 L Ur Random Potassium < 2 L Ur Random Chloride < 20.0 L Urine Opiates Screen Urine Fentanyl Screen Ur Barbiturates Screen U Amphetamin/Meth Scrn U Benzodiazepines Scrn U Cocaine Metab Screen U Marijuana (THC) Screen 06/25/25 06/25/25 03:20 07:57 WBC 7.6 D RBC 5.12 Hgb 14.7 Hct 43.5 MCV 85 MCH 28.7 MCHC 33.8 RDW Std Deviation 40.0 Plt Count 190 D Neut % (Auto) 91 H Lymph % (Auto) 6 L Martin % (Auto) 3 Eos % (Auto) 0 Baso % (Auto) 0 Neut # (Auto) 6.9 Lymph # (Auto) 0.4 L Martin # (Auto) 0.2 Eos # (Auto) 0.0 Baso # (Auto) 0.0 Immature Gran # (Auto) 0.06 H Absolute Nucleated RBC 0.00 Immature Gran % 1 H Nucleated RBC % 0 Puncture Site ABG pH ABG pCO2 ABG pO2 ABG HCO3 ABG O2 Saturation ABG Base Excess FiO2 Sodium 132 L 131 L Potassium Chloride Carbon Dioxide Anion Gap BUN Creatinine Estim Creat Clear Calc eGFR BUN/Creatinine Ratio Glucose Estimated Ave Glu mg/dL Hemoglobin A1c Calculated Osmolality Calcium Corrected Calcium Phosphorus Magnesium 2.3 Total Bilirubin AST ALT Alkaline Phosphatase Troponin I 0.092 H* B-Natriuretic Peptide Total Protein Albumin Globulin Albumin/Globulin Ratio Triglycerides 81 Cholesterol 187 LDL Cholesterol, Calc 117 HDL Cholesterol 54 Cholesterol/HDL Ratio 3.5 L Ur Collection Type Urine Color Urine Clarity Urine pH Ur Specific Carson Urine Protein Urine Glucose (UA) Urine Ketones Urine Blood Urine Nitrite Urine Bilirubin Urine Urobilinogen (Auto) Ur Leukocyte Esterase Urine RBC Urine WBC Ur Squamous Epith Cells Urine Bacteria Hyaline Casts Ur Culture Indicated? Ur Random Sodium Ur Random Potassium Ur Random Chloride Urine Opiates Screen Urine Fentanyl Screen Ur Barbiturates Screen U Amphetamin/Meth Scrn U Benzodiazepines Scrn U Cocaine Metab Screen U Marijuana (THC) Screen ABG Interpretation ABG results: 06/24/25 17:45 ABG pH 7.39 ABG pCO2 36 ABG pO2 50 L* ABG HCO3 21 ABG O2 Saturation 86 L ABG Base Excess -3 Quality Measures Quality Measures VTE prophylaxis Assessment & Plan Assessment Current Active Medications: Generic Name Dose Route Start Last Admin Trade Name Freq PRN Reason Stop Dose Admin Acetaminophen 650 mg 06/24/25 22:06 Acetaminophen 325 Mg Tablet PO 07/24/25 22:05 Q6H PRN Fever >101.5 Al Hydrox/Mg Hydrox/Simethicone 30 ml 06/24/25 22:06 Mg Hyd/Al Hyd/Johnson (Maalox Reg) Susp 30 Ml Udc PO 07/24/25 22:05 Q6H PRN Indigestion Enoxaparin Sodium 40 mg 06/25/25 09:00 Enoxaparin Sod Inj 40 Mg/0.4 Ml Syringe SC 07/09/25 08:59 QDAY [facility] Ceftriaxone Sodium/Dextrose 1 gm in 50 mls @ 100 mls/hr 06/25/25 09:00 Rocephin/D5w 1gm Iv Premix IV 07/02/25 08:59 QDAY [facility] Azithromycin 250 mg/ Sterile 252.5 mls @ 252.5 mls/hr 06/25/25 09:00 Water 2.5 ml/ Sodium Chloride IV 07/02/25 08:59 QDAY [facility]ASE Dextrose 500 mls @ 200 mls/hr 06/25/25 01:58 06/25/25 07:41 D5w IV 07/25/25 01:57 200 mls/hr .Q2H30M CHASE Administration Ondansetron HCl 4 mg 06/24/25 22:06 Ondansetron Inj 2 Mg/Ml Inj 2 Ml IVP 07/24/25 22:05 On Hold: 06/25/25 00:24 Q6H PRN NAUSEA OR VOMITING Protocol Sodium Chloride 3 ml 06/24/25 17:29 Sodium Chloride Rt Lauren 0.9% 3 Ml Nebu INH 07/24/25 17:28 PRN PRN SOLN Plan This is a 44-year-old male with pmhx of cardioversion in 2019 for an episode of SVT, COPD, hypertension, unspecified cardiac surgery in childhood, HFrEF 40% who presented to ED on 06/24 with complaint of acute onset shortness of breath. Admitted for AHRF in setting of PNA, and management of hyponatremia. Acute hypoxemic respiratory failure PNA, likely GNR Possible CHF without exacerbation Presenting with acute respiratory failure with oxygen saturating dropping to 70% on room air. ABG showed low oxygen of 50 but normal pH and CO2. CT showed no evidence of PE, but demonstrated bibasilar PNA. She also afebrile but has leukocytosis of 21.0. BNP 157 and xhest x-ray with cardiomegaly and findings concerning for possible mild to moderate CHF versus pericardial effusion. Most recent ECHO from 2019 showed EEF 40%. However, no signs of volume overload on exam. In ED, he received a dose of CTX and DOXYCYCLINE and SOLUMEDROL 125 mg X1. ? Continue DUNEBS PRN ? Continue CEFTRIAXONE and AZITHROMYCIN ? Pending blood and sputum culture ? Pending ECHO ? Cardiac stratification with lipid panel (WNL), TSH (pending), and A1c 5.9 Acute Hypoosmolar Hyponatremia Presents with sodium 121, and serum osm of 246. States he has been avoiding salt intake over the last few years as advised by his doctor. Additionally, reports excessive water intake since yesterday in preparation for drug test. In ED, he had spontaneous 4L urine output, after which sodium self corrected to 133 despite a dose of DESMOPRESIN given preemptively. Will proceed with workup for other potential cause. ? Urine sodium less than 15, urine potassium less than 2, urine chloride less than 20 ? Pending Uosm ? Pending ACTH, TSH ? Nephrology consulted, appreciate recommendations ? Strict INOs ? Sodium checks every 4 hours ? 1500 cc fluid restriction ? CIWA protocol given possible drinking history, though the patient does deny NSTEMI, likely type 2 Hx of cardioversion 2019 Likely demand ischemia in settings of hypoxemia. Trop 0.083 without evidence of ischemia on EKG which showed sinus rhythm, and without chest pain. ? Troponin peaked at 0.141, decreased to 0.092, will stop trending troponins TIGRE (resolved) Likely renal congestion in setting of excessive water intake with admission CR 1.3. Self-corrected after 4L urine output. ? Renally dose meds, avoid overdiuresis and NEPHROTOXINS ? Daily CMP #BPH? #History of umbilical hernia Patient reports that he has trouble with maintaining his urine stream. Patient states that he wakes up several times at night to urinate, and it is usually low flow. Did not seem to have difficulty on admission however. Most recent imaging of pelvis was a CT abdomen/pelvis on 01/05/2019 which was negative for any significant prostamegaly. but did show an umbilical hernia. ? Flomax 0.4 mg daily ? Patient to follow-up outpatient Health maintenance Diet: Regular GI prophylaxis: Not indicated DVT prophylaxis: LOVENOX Antibiotics: CTX and AZITHROMYCIN CODE STATUS: FULL-CODE Disposition: Admitted for AHRF and acute hyponatremia Patient plan of care was discussed with attending physician Dr. Angelo Bar, PGY1 Attending Provider Attestation/Addendum I have discussed and was present for the essential components of the history, physical examination, diagnosis, and treatment plan with the resident. I agree with the patient's care as documented by the resident and amended herein by me. Hansel Stephens DO. Although this document has been carefully reviewed, there may still be some phonetic and other typographical errors. These errors are purely grammatical due to imperfections in the software program and should not be construed in any way to compromise the substance of the patient's medical care during this visit.
--- NOTE | 2025-06-25 09:27 | PD.NEPHCONS ---
History of Present Illness Data of Consult Consult date: 06/25/25 Requesting Physician: Allison Scherer MD Primary Care Provider: Vianney Palomares NP Consult Narrative Reason for consult: Hyponatremia History of present illness: Mr. Monsalve is a 44-year-old gentleman with past medical history significant for hypertension, COPD, cardioversion in 2019 for SVT presented to the emergency department with shortness of breath for the last couple of hours prior to his presentation. Informant at bedside. Patient stated he did not have any chest pain, palpitations, cough, fever or chills. In the ED he was hypoxic and was started on BiPAP. CT chest showed no evidence of any PE. Did show pneumonia. Labs showed WBC 21, sodium 121. Bicarbonate was 19. Blood sugar 150. Patient was started on albuterol breathing treatments, steroids, antibiotics. Patient started to make significant amount of urine. ER called me and I suggested to give 1 dose of desmopressin. This morning his sodium is 129. Patient was started on D5W. Renal consultation requested for hyponatremia. Patient admitted that he has been drinking a significant amount of water As he was due for a drug screen for DOT. His home medications include aspirin, diltiazem, lisinopril. Admits to decreased salt intake. Admits only 4 beers per week. In telemetry this morning he seems to be alert and awake. cc:: cc: Allison Scherer MD Review of Systems Review of Systems Narrative Review of Systems: Right CONSTITUTIONAL: Patient denies any fever, chills. HEENT: Denies any visual disturbances or hearing problems. CARDIOVASCULAR: Patient denies any chest pain, shortness of breath, swelling in the lower extremities. PULMONARY: Patient denies any shortness of breath, cough. GASTROINTESTINAL: Patient denies any abdominal pain, constipation, nausea, vomiting, diarrhea. GENITOURINARY: Patient denies any urinary symptoms of burning or frequency or hematuria, denies any form in the urine. SKIN: Denies any rash. MUSCULOSKELETAL: Denies any muscular skeletal problems of joint pains. NEUROLOGICAL: Denies any neurological problems of strokes, seizures or confusion. Denies any memory problems. PSYCHIATRIC: Denies any depression or anxiety. LYMPHATICS : No lymphadenopathy Past Medical History Past Medical History NEUROLOGIC: Positive Neurological Disorders; Negative Seizures CARDIAC: Positive Cardiac Disorders, Cardiac Arrhythmia, Congenital Heart Disease and Hypertension; Negative Myocardial Infarction, Heart Murmur, Congestive Heart Failure, Valvular Heart Disease, Edema or Cellulitis RESPIRATORY: Negative Chronic Obstructive Pulmonary Disease (COPD) or Asthma GASTROINTESTINAL: Positive Gastrointestinal Disorders; Negative Gastroesophageal Reflux Disease GENITOURINARY: Negative Genitourinary Disorders or Renal Disease MUSCULOSKELETAL: Negative Musculoskeletal Disorders ENT: Positive History of ENT Problems and Ear Infection ENDOCRINE: Negative Endocrine Disorders, Diabetes Mellitus Type 1 or Diabetes Mellitus Type 2 HEMATOLOGIC: Negative Blood Disorders or Sickle Cell Disease PSYCHO/SOCIAL: Positive Anxiety OTHER HISTORY: Positive Hospitalization and Chicken Pox; Negative Autoimmune Disease, Shingles, Falls, Blood Transfusions, Blood Transfusion Reaction, Anesthesia Reactions, Chemotherapy, Radiation Therapy or MRSA Family History FAMILY HISTORY: Positive Family Cardiac Disorders, Family Endocrine Disorders, Family Cancer and Family Surgery; Negative Family Psychiatric Problems, Family Respiratory Disorders, Family Gastrointestinal Problems or Family Anesthesia Reaction Surgical History SURGICAL: Positive Cardiac Surgery and Open Heart Surgery; Negative Pacemaker Social History SMOKING STATUS: Former smoker SECOND HAND EXPOSURE: No 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 LAST INTAKE: Unknown Travel History EBOLA RISK: No Meds Home Medications and Allergies Home Medications ?Medication ?Instructions ?Recorded ?Confirmed ?Type lisinopril 10 mg tablet 10 mg PO QDAY 06/24/25 06/25/25 History Allergies Allergy/AdvReac Type Severity Reaction Status Date / Time No Known Allergies Allergy Verified 02/02/19 06:46 Exam Vital Signs Temp Pulse Resp BP Pulse Ox O2 Del Method O2 Flow Rate 36.0 C 93 28 H 120/87 H 96 Nasal Cannula 2 06/25/25 15:45 06/25/25 16:00 06/25/25 15:45 06/25/25 15:45 06/25/25 15:45 06/25/25 15:45 06/25/25 15:45 FiO2 50 06/25/25 15:45 Narrative Exam GENERAL APPEARANCE: Patient seems to be comfortable, adequately hydrated and nourished. HEENT: EOMI, PERRLA NECK: Neck supple, no JVD or bruit CARDIOVASCULAR: Heart regular, no murmurs LUNGS/CHEST: Chest clear to auscultation. No rales, rhonchi, wheezing ABDOMEN: Soft, nontender, nondistended. No masses. Normal bowel sounds. EXTREMITIES: No edema, clubbing or cyanosis. SKIN: Skin exam normal without any rashes MUSCULOSKELETAL: Musculoskeletal exam normal PSYCHIATRIC: Normal mood, affect LYMPHATICS: No lymphadenopathy noted NEUROLOGICAL : No neurological deficits Results Labs 06/25/25 03:20 06/25/25 17:09 Labs: Short CBC 06/25/25 Range/Units 03:20 WBC 7.6 D (3.8-10.6) Thou/mm3 Hgb 14.7 (13.5-16.0) g/dL Hct 43.5 (41.0-53.0) % Plt Count 190 D (140-440) Thou/mm3 BMP 06/24/25 06/25/25 06/25/25 22:04 00:22 03:20 Sodium 129 L 133 L 132 L Potassium 3.8 Chloride 94 L Carbon Dioxide 22.3 BUN 12 Creatinine 1.0 Glucose 143 H Calcium 9.3 06/25/25 06/25/25 06/25/25 07:57 14:04 17:09 Sodium 131 L 132 L 136 Potassium Chloride Carbon Dioxide BUN Creatinine Glucose Calcium Cardiac Enzymes 06/25/25 06/25/25 Range/Units 00:22 07:57 Troponin I 0.141 H* 0.092 H* (0.0-0.045) ng/mL Liver Function 06/24/25 Range/Units 22:04 Albumin 4.7 D (3.5-5.0) gm/dL ABG Interpretation ABG results: 06/24/25 17:45 ABG pH 7.39 ABG pCO2 36 ABG pO2 50 L* ABG HCO3 21 ABG O2 Saturation 86 L ABG Base Excess -3 Assessment & Plan Assessment and plan (1) Hyponatremia: Status: Acute Assessment and plan: Hyponatremia probably related to hypovolemic hyponatremia versus polydipsia from drinking significant amount of fluids with no salt. Patient had 4 L of urine in the ER. Despite giving desmopressin and D5W he still overcorrected within normal neurological symptoms. Continue with D5W. Monitor urinary output. I would continue with the fluid restriction. (2) Pneumonia: Status: Acute Assessment and plan: On antibiotics (3) Acute hypoxic respiratory failure: Status: Acute Assessment and plan: Acute hypoxic respiratory failure from COPD and pneumonia. Responded well to IV steroid, breathing treatments, antibiotics. (4) COPD (chronic obstructive pulmonary disease): Status: Acute (5) Elevated troponin: Status: Acute Assessment and plan: Probably stress-induced. Chest pains. Additional Assessment & Plan Additional Plan: Plan of care discussed with primary team. Thank you Hansel for allowing me to participate in the care of Bello
[2025-06-25] MEDS: ENOXAPARIN SOD INJ 40 MG/0.4 ML SYRINGE SC (10:36)
[2025-06-25] MEDS: cefTRIAXone/D5w 1gm IV premix 1 GM/50 ML BAG IV (10:44)
--- NOTE | 2025-06-25 11:13 | PD.IMCONS ---
HPI Data of Consult Requesting Physician: Allison Scherer MD Primary Care Provider: Vianney Palomares NP Consult Narrative History of present illness: This is a 44-year-old male with pmhx of COPD, HTN, cardioversion in 2019 for an episode of SVT, COPD, cardiac surgery in childhood for unknown condition and long smoking history Patient was seen in the emergency room with increasing shortness of breath started today EKG shows nonspecific ST-T wave changes Subsequently a CAT scan of the chest was done to rule out pulmonary embolism which was negative it did show pneumonia Therefore patient was admitted to the hospital for further evaluation cc:: cc: Allison Scherer MD Meds Home Medications and Allergies Home Medications ?Medication ?Instructions ?Recorded ?Confirmed ?Type lisinopril 10 mg tablet mg 06/24/25 History Allergies Allergy/AdvReac Type Severity Reaction Status Date / Time No Known Allergies Allergy Verified 02/02/19 06:46 Exam Vital Signs Temp Pulse Resp BP Pulse Ox O2 Del Method O2 Flow Rate 97.0 F 88 19 129/72 95 Nasal Cannula 2 06/25/25 09:20 06/25/25 09:20 06/25/25 09:20 06/25/25 09:20 06/25/25 09:20 06/25/25 09:20 06/25/25 09:20 FiO2 50 06/24/25 17:43 Routine HEENT Exam Head: Present normocephalic and atraumatic Eye: Present EOMI and PERRL ENT: Present mucous membranes moist Routine Neck Exam Neck: Present supple and trachea midline Routine Respiratory Exam Respiratory: Present chest non-tender, lungs clear, normal breath sounds and no resp distress Routine Cardiovascular Exam Cardiovascular: Present RRR Routine Abdominal Exam Abdominal: Present soft and normoactive bowel sounds Routine Extremities Exam Extremities: Present full ROM Routine Skin Exam Skin: Present intact, dry and warm Routine Neurological Exam Neurological: Present alert, oriented X3 and CN II-XII intact Routine Psychiatric Exam Psychiatric: Present normal affect and normal thought process Results Labs 06/25/25 03:20 06/25/25 07:57 Labs: Short CBC 06/24/25 06/25/25 Range/Units 17:56 03:20 WBC 21.0 H 7.6 D (3.8-10.6) Thou/mm3 Hgb 14.4 14.7 (13.5-16.0) g/dL Hct 42.5 43.5 (41.0-53.0) % Plt Count 233 190 D (140-440) Thou/mm3 BMP 06/24/25 06/24/25 06/25/25 17:56 22:04 00:22 Sodium 121 L 129 L 133 L Potassium 3.4 3.8 Chloride 90 L 94 L Carbon Dioxide 18.8 L 22.3 BUN 11 12 Creatinine 1.3 1.0 Glucose 153 H 143 H Calcium 8.3 9.3 06/25/25 06/25/25 03:20 07:57 Sodium 132 L 131 L Potassium Chloride Carbon Dioxide BUN Creatinine Glucose Calcium Cardiac Enzymes 06/24/25 06/25/25 06/25/25 Range/Units 17:56 00:22 07:57 Troponin I 0.083 H* 0.141 H* 0.092 H* (0.0-0.045) ng/mL Liver Function 06/24/25 06/24/25 Range/Units 17:56 22:04 Total Bilirubin 1.0 (0.3-1.2) mg/dL AST 22 (0-34) U/L ALT 15 (10-49) U/L Alkaline Phosphatase 59 (46-116) U/L Albumin 4.1 4.7 D (3.5-5.0) gm/dL Urine 06/24/25 Range/Units 18:45 Urine Color Lt-Yellow (Lt Yel-Yel) Urine Clarity Clear (Clear/Hazy) Urine pH 6.0 (5.0-7.0) Ur Specific [place] 1.018 (1.001-1.035) Urine Protein Trace (Neg - Trace) Urine Glucose (UA) 2+ A (Negative) ABG Interpretation ABG results: 06/24/25 17:45 ABG pH 7.39 ABG pCO2 36 ABG pO2 50 L* ABG HCO3 21 ABG O2 Saturation 86 L ABG Base Excess -3 Assessment and Plan Assessment and plan (1) Pneumonia: Status: Acute (2) Acute hypoxic respiratory failure: Status: Acute (3) COPD (chronic obstructive pulmonary disease): Status: Acute (4) Elevated troponin: Status: Acute Additional Assessment & Plan Additional Plan: Patient is elevated troponin noted most likely demand ischemia Continue treatment pneumonia continue patient's home medications Currently patient reports no cardiac symptoms
[2025-06-25] MEDS: AZITHROMYCIN INJ 250 MG, Sterile Water 2.5 ML in SODIUM CHLORIDE 0.9% 250 ML 250 ML 252.5 MG IV (13:04)
[2025-06-25] MEDS: TAMSULOSIN HCL 0.4 MG CAPSULE PO (14:12)
[2025-06-25 14:34] LABS: Sodium 132 mMol/L (136-145)
[2025-06-25 17:39] LABS: Sodium 136 mMol/L (136-145)
[2025-06-25] MEDS: DEXTROSE 5%-WATER 1,000 ML 100 ML IV (21:19)
[2025-06-25 21:55] LABS: Sodium 138 mMol/L (136-145)
[2025-06-25] MEDS: DEXTROSE 5%-WATER 1,000 ML 200 ML IV (22:48)
[2025-06-25 22:56] LABS: Phosphorous 3.1 mg/dL (2.4-5.1); Thyroid Stimulating Hormone 0.50 uIU/mL (0.55-4.78)
[2025-06-26] VITALS: BP 96/67; PULSE 81; PULSE 82; RESP 19; TEMP 36.1; O2SAT 96
[2025-06-26 00:59] LABS: Sodium 139 mMol/L (136-145)
[2025-06-26] MEDS: DEXTROSE 5%-WATER 1,000 ML 200 ML IV (02:41)
[2025-06-26] MEDS: DEXTROSE 5%-WATER 1,000 ML 250 ML IV (03:54)
[2025-06-26 04:00] VITALS: BP 117/77; PULSE 102; PULSE 84; RESP 20; TEMP 36.1; O2SAT 95
[2025-06-26 05:16] LABS: Basophils # (Auto) 0.0 Thou/mm3 (0.0-0.2); Basophils % (Auto) 0 % (0-2.5); Eosinophils # (Auto) 0.0 Thou/mm3 (0.0-0.5); Eosinophils % (Auto) 0 % (0-10); Hematocrit 41.2 % (41.0-53.0); Hemoglobin 13.6 g/dL (13.5-16.0); Immature Granulocytes Auto 0.06 Thou/mm3 (0.00-0.00); Lymphocytes # (Auto) 2.5 Thou/mm3 (1.0-4.8); Lymphocytes % (Auto) 24 % (10-50); Mean Corpuscular HGB Conc 33.0 g/dl (31.0-37.0); Mean Corpuscular Hemoglobin 28.9 pg (25.0-35.0); Mean Corpuscular Volume 88 fL (80-100); Monocytes # (Auto) 0.8 Thou/mm3 (0.0-0.8); Monocytes % (Auto) 7 % (0-12); Neutrophils # (Auto) 7.2 Thou/mm3 (1.8-7.7); Neutrophils % (Auto) 68 % (37-80); Nucleated Red Blood Cell # 0.00 Thou/mm3 (0.00-0.00); Nucleated Red Blood Cell % 0 /100 WBC (0); Platelet Count 184 Thou/mm3 (140-440); RDW Standard Deviation 42.6 fL (35.1-43.9); Red Blood Count 4.70 Miln/mm3 (4.50-5.90); White Blood Count 10.6 Thou/mm3 (3.8-10.6)
[2025-06-26 05:44] LABS: Free T4 (Free Thyroxine) 1.57 ng/dL (0.89-1.76); Magnesium 2.3 mg/dL (1.6-2.6)
[2025-06-26 07:49] LABS: Albumin, Serum 4.0 gm/dL (3.5-5.0); Anion Gap 11 (7-16); BUN/Creatinine Ratio 13 Ratio (12-20); Blood Urea Nitrogen 13 mg/dL (9-23); Calcium 9.0 mg/dL (8.3-10.6); Calcium (Corrected) 9.0 mg/dL (8.5-10.1); Carbon Dioxide 24.0 mMol/L (20.0-31.0); Chloride 105 mMol/L (98-107); Creatinine (Component) 1.0 mg/dL (0.6-1.3); Estimated Creatinine Clearance 109.2 mL/min (>60); Glucose 130 mg/dL (74-106); Osmolality,Calculated 281 (275-295); Phosphorous 3.3 mg/dL (2.4-5.1); Potassium 4.3 mMol/L (3.4-5.1); Sodium 140 mMol/L (136-145); eGFR > 60 See Note
[2025-06-26 08:00] VITALS: BP 119/76; PULSE 84; PULSE 94; RESP 27; TEMP 36.4; O2SAT 98
[2025-06-26 08:15] VITALS: PULSE 86; RESP 25; O2SAT 98
[2025-06-26] MEDS: DEXTROSE 5%-WATER 1,000 ML 100 ML IV (08:15)
[2025-06-26] MEDS: TAMSULOSIN HCL 0.4 MG CAPSULE PO (08:16)
[2025-06-26] MEDS: ENOXAPARIN SOD INJ 40 MG/0.4 ML SYRINGE SC (08:16)
[2025-06-26] MEDS: cefTRIAXone/D5w 1gm IV premix 1 GM/50 ML BAG IV (08:17)
[2025-06-26 09:33] LABS: Sodium 140 mMol/L (136-145)
--- NOTE | 2025-06-26 09:48 | PC.SS ---
44YO White male, reason for visit: HYPNOATREMIA/NSTEMI/PNA SS met with patient at bedside to complete initial assessment. Role and purpose of today?s contact was explained. Patient confirmed his demographic information. Patient identified his significant other Jack Gonsalez as his primary medical surrogate decision maker. Patient disclosed he is independent with ADL completion and ambulation as well. PHARMACY: [facility]. PCP: eileen Pradhan. scheduled 07/08/25. Discharge plan discussed with patient and he is requesting to return home when medically clear. Next of kin: CATHY Gonsalez [phone] Discharge plan: Home, [facility] to transport.
[2025-06-26] MEDS: DESMOPRESSIN ACET INJ 4 mCg/ML VIAL 10ML IV (10:10)
[2025-06-26] MEDS: AZITHROMYCIN INJ 250 MG, Sterile Water 2.5 ML in SODIUM CHLORIDE 0.9% 250 ML 250 ML 252.5 MG IV (10:10)
--- NOTE | 2025-06-26 11:57 | ESDS_ITS ---
Planned Discharge Date 06/26/25 DS: Providers Provider Date of admission: 06/24/25 22:32 Primary care physician: Vianney Palomares NP Admitting Provider: Allison Scherer MD Attending Provider on Admission: Allison Scherer MD Consults: 06/25/25 00:15 Consult to Nephrology Routine Comment: Water intox? Consulting Provider: Javon Culver Attending Provider on DC: Trip Stephens DO Discharging Provider: Corona Bar DO Anticipated date of discharge: 06/26/25 DS: Diagnosis Problem List Completed Was Problem List Reviewed/Reconciled?: Yes Hospital Course Hospital Course Hospital course: Reason for hospitalization: Acute hypoxic respiratory failure Summary: This patient is a 44-year-old male with past medical history of hypertension, unspecified cardiac surgery in childhood, HFrEF 40% (2018), and a history of cardioversion in 2019 for an episode of SVT who presented to [facility] ED on 06/24 for complaint of acute onset shortness of breath. The patient was admitted for management of acute hypoxic respiratory failure. The patient stated that he was preparing for a drug screen for a new job with the [employer], so he was consuming significant amounts of water, estimated to be around 8 to 10 32 ounce cups of water and avoided salt intake. Prior to coming to the ED, the patient had acute onset shortness of breath, which prompted him to seek care at [facility] ED. On presentation, the patient was noted to have tachypnea and O2 saturation in the 80s. Additionally, the patient was noted to have leukocytosis of 21 and sodium of 121. Given the patient's shortness of breath and oxygen desaturation, the patient was started on BiPAP and IV antibiotics for suspected pneumonia. The patient had an EKG that showed S1Q3T3, which was concerning for PE, so cardiology requested CTA be performed. The CTA was negative for PE, but did know some possible bibasilar pneumonia. Without any diuresis, the patient produces about 3.7 L of fluid, and had rapid correction of his sodium. The patient was started on D5W to try and control the rate of correction. For that, nephrology was also consulted, who also recommended fluid restriction on top of D5W. The patient remained grossly asymptomatic and was noted to be saturating well on room air after producing a net negative of 2.8 L of fluid throughout his hospitalization. The patient did note difficulty with urine flow at home, and how he wakes up several times at night to urinate, so the patient was started on tamsulosin and advised to follow-up outpatient. On 06/26, the patient's shortness of breath had completely resolved and the patient was saturating well on room air. Patient sodium was within the normal limits and patient remained mostly asymptomatic. As result, patient was medically cleared by both nephrology and the medicine team, so the patient was to be discharged back home with self-care. The patient was advised to follow-up with a geothermal system installer to perform an echocardiogram to assess the status of his HFrEF as his last echocardiogram was in 2019. Discharge Recommendations: - Please take Tamsulosin 0.4 mg by mouth daily for urinary retention/BPH - Continue Lisinopril 10mg by mouth daily for hypertension - Follow up with PCP within 1 week of discharge - Ask your PCP to refer you to a geothermal system installer to work-up for Heart Failure, or follow-up with geothermal system installer Dr. Myrick - Continue rest of medications as previously prescribed - Return to the ED or call EMS if symptoms return and/or worsen If you don't have a PCP, you can make an appointment at the [facility]: [address] [place] [address] Hospital Diagnoses: #Acute hypoxic respiratory failure #History of HFrEF, EF 40% 2019 #Acute hypoosmolar hyponatremia #NSTEMI, likely type II #History of cardioversion in 2019 #TIGRE, resolved #BPH? #History of umbilical hernia Patient plan of care was discussed with attending physician Dr. Angelo Bar, PGY-1 Status at Discharge Overall status at discharge: patient is back to baseline Time Spent with Patient Time attestation: Total time spent providing and/or coordinating discharge services: Time spent: Greater than 30 minutes Exam Vital Signs Temp Pulse Resp BP Pulse Ox O2 Del Method O2 Flow Rate 97.6 F 86 25 H 119/76 98 Room Air 2 06/26/25 08:00 06/26/25 08:15 06/26/25 08:15 06/26/25 08:00 06/26/25 08:15 06/26/25 08:00 06/25/25 15:45 FiO2 50 06/25/25 15:45 Narrative Exam Physical Exam: General: Alert, no acute distress. Obese. Skin: Warm, dry, intact. Head: Normocephalic, atraumatic. Eye: Normal conjunctiva, PERRL. Cardiovascular: Regular rate and rhythm, no murmur, +S1/S2. Respiratory: Respirations unlabored on NC, no crackles, no wheezing. Gastrointestinal: Soft, nontender, non-distended. No guarding or rebound tenderness. Extremities: No edema, no cyanosis, no clubbing. Neuro: No focal deficits observed. Conversant, moving all extremities. No overt cerebellar signs/incoordination. Psychiatric: Cooperative, appropriate affect. Discharge Plan Plan Patient Disposition: HOME (Self Care) Care Plan Goals: Please take Tamsulosin 0.4 mg by mouth daily for urinary retention/BPH Continue Lisinopril 10mg by mouth daily for hypertension Follow-up with your PCP within 1 week of discharge or follow-up at the [address] [place], [place] [id number] Ask your PCP to refer you to a geothermal system installer to work-up for Heart Failure, or follow-up with geothermal system installer Dr. Myrick If your symptoms worsen or if you develop new chest pain, shortness of breath, dizziness or loss of consiousness - please come back to the ED immediately Prescriptions/Referrals Prescriptions/Med Rec: New tamsulosin 0.4 mg Capsule 0.4 mg PO QDAY 30 Days Qty: 30 0RF Continued lisinopril 10 mg tablet 10 mg PO QDAY Discontinued aspirin [Aspir-Low] 81 mg Tablet,Delayed Release (Dr/Ec) 81 mg PO DAILY Qty: 30 0RF diltiazem HCl [Cardizem CD] 120 mg capsule,extended release 24hr 120 mg PO QDAY Qty: 30 0RF Referrals: Jay Myrick MD [Physician, Cardiology] Vianney Palomares NP [Primary Care Provider] Patient/Caregiver Discharge Instructions Education Materials: Heart Failure Meds, Hyponatremia Dc, Benign Prostatic Hyperplasia, Heart Failure and Physical Activity, Smoking and Respiratory Diseases Print Language: Portuguese Stand Alone Forms: Kristine Award Info., Patient Portal Info Letter Discharge Order Discharge Orders: Discharge (Routine); Ordered 06/26/25 Ordered By: Guanakito Hickman Quality Discharge Quality Measures VTE prophylaxis MD Attestestation MD Attestation I have discussed and was present for the essential components of the discharge history, physical examination, diagnosis, and discharge treatment plan with the resident. I agree with the patient's discharge care as documented by the resident and amended herein by me. Hansel Stephens DO. The patient understood all discharge instructions, all questions were answered satisfactorily. The patient was instructed to return to the Emergency Department is symptoms worsened or persisted. Although this document has been carefully reviewed, there may still be some phonetic and other typographical errors. These errors are purely grammatical due to imperfections in the software program and should not be construed in any way to compromise the substance of the patient's medical care during this visit.
--- NOTE | 2025-06-26 11:57 | PD.RESPRO ---
Documentation for date of: 06/26/25 Exam Vital Signs Temp Pulse Resp BP Pulse Ox O2 Del Method O2 Flow Rate 97.6 F 86 25 H 119/76 98 Room Air 2 06/26/25 08:00 06/26/25 08:15 06/26/25 08:15 06/26/25 08:00 06/26/25 08:15 06/26/25 08:00 06/25/25 15:45 FiO2 50 06/25/25 15:45 Objective Labs 06/26/25 04:54 06/26/25 08:42 Labs: Laboratory Results - last 24 hr 06/25/25 06/25/25 06/25/25 14:04 17:09 21:03 WBC RBC Hgb Hct MCV MCH MCHC RDW Std Deviation Plt Count Neut % (Auto) Lymph % (Auto) [place] % (Auto) Eos % (Auto) Baso % (Auto) Neut # (Auto) Lymph # (Auto) [place] # (Auto) Eos # (Auto) Baso # (Auto) Immature Gran # (Auto) Absolute Nucleated RBC Immature Gran % Nucleated RBC % Sodium 132 L 136 138 Potassium Chloride Carbon Dioxide Anion Gap BUN Creatinine Estim Creat Clear Calc eGFR BUN/Creatinine Ratio Glucose Calculated Osmolality Calcium Corrected Calcium Phosphorus 3.1 Magnesium Albumin TSH 0.50 L Free T4 06/26/25 06/26/25 06/26/25 00:40 04:54 08:42 WBC 10.6 RBC 4.70 Hgb 13.6 Hct 41.2 MCV 88 MCH 28.9 MCHC 33.0 RDW Std Deviation 42.6 Plt Count 184 Neut % (Auto) 68 Lymph % (Auto) 24 [place] % (Auto) 7 Eos % (Auto) 0 Baso % (Auto) 0 Neut # (Auto) 7.2 Lymph # (Auto) 2.5 [place] # (Auto) 0.8 Eos # (Auto) 0.0 Baso # (Auto) 0.0 Immature Gran # (Auto) 0.06 H Absolute Nucleated RBC 0.00 Immature Gran % 1 H Nucleated RBC % 0 Sodium 139 140 140 Potassium 4.3 D Chloride 105 Carbon Dioxide 24.0 Anion Gap 11 BUN 13 Creatinine 1.0 Estim Creat Clear Calc 109.2 eGFR > 60 BUN/Creatinine Ratio 13 Glucose 130 H Calculated Osmolality 281 Calcium 9.0 Corrected Calcium 9.0 Phosphorus 3.3 Magnesium 2.3 Albumin 4.0 D TSH Free T4 1.57 ABG Interpretation ABG results: 06/24/25 17:45 ABG pH 7.39 ABG pCO2 36 ABG pO2 50 L* ABG HCO3 21 ABG O2 Saturation 86 L ABG Base Excess -3 Quality Measures Quality Measures VTE prophylaxis Assessment & Plan Assessment Current Active Medications: Generic Name Dose Route Start Last Admin Trade Name Freq PRN Reason Stop Dose Admin Acetaminophen 650 mg 06/24/25 22:06 Acetaminophen 325 Mg Tablet PO 07/24/25 22:05 Q6H PRN Fever >101.5 Al Hydrox/Mg Hydrox/Simethicone 30 ml 06/24/25 22:06 Mg Hyd/Al Hyd/Johnson (Maalox Reg) Susp 30 Ml Udc PO 07/24/25 22:05 Q6H PRN Indigestion Diazepam 2.5 mg 06/25/25 11:01 Diazepam Inj 5 Mg/Ml Vial 2 Ml IVP 06/30/25 11:00 Q2HR PRN CIWA SCORE 8-13 Enoxaparin Sodium 40 mg 06/25/25 09:00 06/26/25 08:16 Enoxaparin Sod Inj 40 Mg/0.4 Ml Syringe SC 07/09/25 08:59 40 mg QDAY CHASE Administration Ceftriaxone Sodium/Dextrose 1 gm in 50 mls @ 100 mls/hr 06/25/25 09:00 06/26/25 08:17 Rocephin/D5w 1gm Iv Premix IV 06/29/25 09:29 100 mls/hr QDAY CHASE Administration Azithromycin 250 mg/ Sterile 252.5 mls @ 252.5 mls/hr 06/25/25 09:00 06/26/25 10:10 Water 2.5 ml/ Sodium Chloride IV 06/27/25 09:59 252.5 mls/hr QDAY CHASE Administration Dextrose 1,000 mls @ 100 mls/hr 06/26/25 05:12 06/26/25 08:15 D5w IV 06/27/25 01:11 100 mls/hr .Q10H CHASE Administration Lorazepam 0.5 mg 06/25/25 11:01 Lorazepam 0.5 Mg Tablet PO 06/30/25 11:00 Q4HR PRN CIWA Score 2-6 Sodium Chloride 3 ml 06/24/25 17:29 Sodium Chloride Rt Lauren 0.9% 3 Ml Nebu INH 07/24/25 17:28 PRN PRN SOLN Tamsulosin HCl 0.4 mg 06/25/25 12:00 06/26/25 08:16 Tamsulosin Hcl 0.4 Mg Capsule PO 07/25/25 11:59 0.4 mg QDAY CHASE Administration
[2025-06-26 12:00] VITALS: BP 114/81; PULSE 100; PULSE 101; RESP 17; TEMP 36.2; O2SAT 95
--- NOTE | 2025-06-26 13:38 | ESPR_ITS ---
Documentation for date of: 06/26/25 Subjective Subjective Interval history: Mr. Monsalve is a 44-year-old gentleman with past medical hi//story significant for hypertension, COPD, cardioversion in 2019 for SVT presented to the emergency department with shortness of breath for the last couple of hours prior to his presentation. Informant at bedside. Patient stated he did not have any chest pain, palpitations, cough, fever or chills. In the ED he was hypoxic and was started on BiPAP. CT chest showed no evidence of any PE. Did show pneumonia. Labs showed WBC 21, sodium 121. Bicarbonate was 19. Blood sugar 150. Patient was started on albuterol breathing treatments, steroids, antibiotics. Patient started to make significant amount of urine. ER called me and I suggested to give 1 dose of desmopressin. This morning his sodium is 129. Patient was started on D5W. Renal consultation requested for hyponatremia. Patient admitted that he has been drinking a significant amount of water As he was due for a drug screen for DOT. His home medications include aspirin, diltiazem, lisinopril. Admits to decreased salt intake. Admits only 4 beers per week. In telemetry this morning he seems to be alert and awake. 06/26/2025 Patient currently seen in medical floor. Resting comfortably. Alert and awake. Sodium normalized. Renal torres stable for discharge. Review of Systems Review of Systems Narrative Review of Systems: Right CONSTITUTIONAL: Patient denies any fever, chills. HEENT: Denies any visual disturbances or hearing problems. CARDIOVASCULAR: Patient denies any chest pain, shortness of breath, swelling in the lower extremities. PULMONARY: Patient denies any shortness of breath, cough. GASTROINTESTINAL: Patient denies any abdominal pain, constipation, nausea, vomiting, diarrhea. GENITOURINARY: Patient denies any urinary symptoms of burning or frequency or hematuria, denies any form in the urine. SKIN: Denies any rash. MUSCULOSKELETAL: Denies any muscular skeletal problems of joint pains. NEUROLOGICAL: Denies any neurological problems of strokes, seizures or confusion. Denies any memory problems. PSYCHIATRIC: Denies any depression or anxiety. LYMPHATICS : No lymphadenopathy Exam Vital Signs Temp Pulse Resp BP Pulse Ox O2 Del Method O2 Flow Rate 36.2 C 100 17 114/81 95 Room Air 2 06/26/25 12:00 06/26/25 12:00 06/26/25 12:00 06/26/25 12:00 06/26/25 12:00 06/26/25 12:00 06/25/25 15:45 FiO2 50 06/25/25 15:45 Narrative Exam GENERAL APPEARANCE: Patient seems to be comfortable, adequately hydrated and nourished. HEENT: EOMI, PERRLA NECK: Neck supple, no JVD or bruit CARDIOVASCULAR: Heart regular, no murmurs LUNGS/CHEST: Chest clear to auscultation. No rales, rhonchi, wheezing ABDOMEN: Soft, nontender, nondistended. No masses. Normal bowel sounds. EXTREMITIES: No edema, clubbing or cyanosis. SKIN: Skin exam normal without any rashes MUSCULOSKELETAL: Musculoskeletal exam normal PSYCHIATRIC: Normal mood, affect LYMPHATICS: No lymphadenopathy noted NEUROLOGICAL : No neurological deficits Objective Labs 06/26/25 04:54 06/26/25 12:58 Labs: Laboratory Results - last 24 hr 06/25/25 06/25/25 06/25/25 14:04 17:09 21:03 WBC RBC Hgb Hct MCV MCH MCHC RDW Std Deviation Plt Count Neut % (Auto) Lymph % (Auto) [place] % (Auto) Eos % (Auto) Baso % (Auto) Neut # (Auto) Lymph # (Auto) [place] # (Auto) Eos # (Auto) Baso # (Auto) Immature Gran # (Auto) Absolute Nucleated RBC Immature Gran % Nucleated RBC % Sodium 132 L 136 138 Potassium Chloride Carbon Dioxide Anion Gap BUN Creatinine Estim Creat Clear Calc eGFR BUN/Creatinine Ratio Glucose Calculated Osmolality Calcium Corrected Calcium Phosphorus 3.1 Magnesium Albumin TSH 0.50 L Free T4 06/26/25 06/26/25 06/26/25 00:40 04:54 08:42 WBC 10.6 RBC 4.70 Hgb 13.6 Hct 41.2 MCV 88 MCH 28.9 MCHC 33.0 RDW Std Deviation 42.6 Plt Count 184 Neut % (Auto) 68 Lymph % (Auto) 24 [place] % (Auto) 7 Eos % (Auto) 0 Baso % (Auto) 0 Neut # (Auto) 7.2 Lymph # (Auto) 2.5 [place] # (Auto) 0.8 Eos # (Auto) 0.0 Baso # (Auto) 0.0 Immature Gran # (Auto) 0.06 H Absolute Nucleated RBC 0.00 Immature Gran % 1 H Nucleated RBC % 0 Sodium 139 140 140 Potassium 4.3 D Chloride 105 Carbon Dioxide 24.0 Anion Gap 11 BUN 13 Creatinine 1.0 Estim Creat Clear Calc 109.2 eGFR > 60 BUN/Creatinine Ratio 13 Glucose 130 H Calculated Osmolality 281 Calcium 9.0 Corrected Calcium 9.0 Phosphorus 3.3 Magnesium 2.3 Albumin 4.0 D TSH Free T4 1.57 ABG Interpretation ABG results: 06/24/25 17:45 ABG pH 7.39 ABG pCO2 36 ABG pO2 50 L* ABG HCO3 21 ABG O2 Saturation 86 L ABG Base Excess -3 Assessment & Plan Assessment and plan (1) Hyponatremia: Status: Acute Assessment and plan: Hyponatremia probably related to hypovolemic hyponatremia versus polydipsia from drinking significant amount of fluids with no salt. Patient had 4 L of urine in the ER. Despite giving desmopressin and D5W he still overcorrected within normal neurological symptoms. For the last 24 hours sodium stabilized. Renal torres stable for discharge. Did discuss not to drink gallon water per day. (2) Pneumonia: Status: Acute Assessment and plan: On antibiotics (3) Acute hypoxic respiratory failure: Status: Acute Assessment and plan: Acute hypoxic respiratory failure from COPD and pneumonia. Responded well to IV steroid, breathing treatments, antibiotics. Can be discharged on p.o. antibiotics. (4) COPD (chronic obstructive pulmonary disease): Status: Acute (5) Elevated troponin: Status: Acute Assessment and plan: Probably stress-induced. Chest pains. Additional Assessment & Plan Additional Plan: Plan of care discussed with primary team. Thank you Hansel for allowing me to participate in the care of Mr. Monsalve
[2025-06-26 13:57] LABS: Sodium 138 mMol/L (136-145)
== END 2025-06-26 14:43 | disposition home or self-care (01) | DRG 139 ==
LOC: SERX 20:53 → SERHOLD 22:33 → S2NX 06-25 09:23
PROVIDERS: Emergency Medicine; Admitting Provider Student in an Organized Health Care Education/Training Program; Emergency Provider Emergency Medicine; PCP Nurse Practitioner Family; Visit Provider Student in an Organized Health Care Education/Training Program
DX: J18.9 Pneumonia, unspecified organism (principal); J96.01 Acute respiratory failure with hypoxia; J44.0 Chronic obstructive pulmonary disease with (acute) lower respiratory infection; E87.1 Hypo-osmolality and hyponatremia; I11.0 Hypertensive heart disease with heart failure; I50.22 Chronic systolic (congestive) heart failure; F17.200 Nicotine dependence, unspecified, uncomplicated; I21.A1 Myocardial infarction type 2; N17.9 Acute kidney failure, unspecified; Z79.899 Other long term (current) drug therapy
CPT/HCPCS: 36415; 36600; 71045; 71275; 80053; 80061; 80069; 80307; 81001; 82024; 82436; 82533; 82803; 83036; 83735; 83880; 83935; 84100; 84133; 84295; 84300; 84439; 84443; 84484; 85025; 87040; 87081; 87205; 87400; 87811; 93005; 93306; 93970; 94644; 94660; 99285; A4216; A4314; A4649; J0456; J0696; J1650; J2597; J2919; J3490; J7050; J7060; J7070; Q9967; A9270